=== PATIENT | female | born 1945 | race Two or more races ===

== ENCOUNTER 2018-01-11 10:02 | Inpatient (IN) | payer MEDICARE, MEDICAID ==
[~2018-01-11] VITALS: Ht 154.9 cm; Wt 54.0 kg
[~2018-01-11 10:02] MED LIST: LISI-604 PO; LOVA20TA2 PO
[2018-01-11] MEDS ORDERED: SODIUM CHLORIDE 0.9% 1,000 ML IV ONE (10:43)
[2018-01-11] MEDS ORDERED: PANTOPRAZOLE 80 MG in SODIUM CHLORIDE 0.9% 100 ML IV SCH (10:45)
[2018-01-11] MEDS ORDERED: PANTOPRAZOLE SODIUM 40 MG/VIAL IV ONE ×2 (10:45→11:28)
[2018-01-11 11:35] LABS: BASOPHILS % 0.6 % (0.0-2.0); EOSINOPHILS % 0.6 % (0.0-5.0); HEMATOCRIT. 24.2 % (36.0-48.0); HEMOGLOBIN. 8.2 g/dL (12.0-16.0); LYMPHOCYTES % 7.7 % (20.0-50.0); MEAN CORPUSCULAR HEMOGLOBIN 28.6 pg (28.0-32.0); MEAN CORPUSCULAR VOLUME 84.4 fL (81.0-99.0); MEAN PLATELET VOLUME 7.3 fl (7.4-10.4); MONOCYTES % 5.2 % (2.0-8.0); NEUTROPHILS % 85.9 % (40.0-76.0); PLATELET 570 x1000/uL (130-400); RED BLOOD CELL COUNT 2.86 mill/uL (4.2-5.4); RED CELL DISTRIBUTION WIDTH 14.2 % (11.6-14.6)
[2018-01-11 11:39] LABS: CLARITY URINE CLEAR (CLEAR); COLOR URINE YELLOW (YELLOW); KETONES URINE NEGATIVE (NEGATIVE); LEUKOCYTE ESTERASE URINE TRACE (NEGATIVE); NITRITE URINE NEGATIVE (NEGATIVE); OCCULT BLOOD URINE NEGATIVE (NEGATIVE); PROTEIN URINE NEGATIVE (NEGATIVE); SPECIFIC GRAVITY URINE 1.012 (1.005-1.030); UROBILINOGEN URINE 0.2 E.U./dL (0.2-1.0)
[2018-01-11 11:42] LABS: CHLORIDE 103 mEq/L (98-107); INR 1.1; PROTHROMBIN TIME 10.6 sec (9.1-11.1)
[2018-01-11] MEDS ORDERED: PANTOPRAZOLE 80 MG in SODIUM CHLORIDE 0.9% 80 ML IV SCH (11:45)
[2018-01-11] MEDS ORDERED: CEFTRIAXONE 2 G PREMIX 50 ML IV ONE (13:15)
[2018-01-11] MEDS ORDERED: IOHEXOL-300 100 ML BOTTLE ONE (13:19)
[2018-01-11] MEDS ORDERED: AMOX-424 MT (18:25)
[2018-01-11] MEDS ORDERED: PANT40TA4 PO (18:25)
[2018-01-11] MEDS ORDERED: AMOX-405 MT (18:25)
[2018-01-11 18:40] VITALS: BP 126/57
[2018-01-11 20:00] VITALS: BP 118/57
[2018-01-11] MEDS ORDERED: CLONIDINE 0.1MG TABLET PO PRN (20:30)
[2018-01-11] MEDS ORDERED: ONDANSETRON HCL 4MG/2ML INJ IV PRN (20:30)
[2018-01-11] MEDS: ENOXAPARIN 40MG/0.4ML SYR SUBCUT SCH ×2 (21:00→22:14)
[2018-01-11 21:29] LABS: HEMATOCRIT 21.3 % (36.0-48.0); HEMOGLOBIN 7.1 g/dL (12.0-16.0)
[2018-01-11] MEDS: DEXT 5%/0.45% NACL KCL 20MEQ/L 1,000 ML IV SCH (22:12)
[2018-01-11] MEDS: ATORVASTATIN CALCIUM 40MG TABLET PO SCH (22:12)
[2018-01-12] VITALS (96 sets, daily range): BP systolic 79–196; BP diastolic 41–107
[2018-01-12] MEDS: PANTOPRAZOLE SODIUM 40 MG/VIAL IV SCH ×2 (06:38→17:18)
[2018-01-12] MEDS ORDERED: IOHEXOL-300 100 ML BOTTLE ONE (08:43)
[2018-01-12] MEDS: DEXT 5%/0.45% NACL KCL 20MEQ/L 1,000 ML IV SCH ×3 (08:53→21:56)
[2018-01-12 09:08] LABS: BG BASE EXCESS -5.1 mmol/L (-2.0-2.0); BG CARBOXYHEMOGLOBIN 0.3 % (0.5-1.5); BG FRACTION INSPIRED OXYGEN 100; BG HCO3 ACT 23.4 mmol/L (22.0-26.0); BG METHEMOGLOBIN 0.2 % (0.0-1.5); BG OXYHEMOGLOBIN 98.5 % (94.0-97.0); BG PCO2 61.8 mmHg (35.0-45.0); BG PH 7.196 (7.350-7.450); BG PO2 272.4 mmHg (75.0-100.0); BG SAMPLE SITE PA LINE; BG TOTAL HEMOGLOBIN 10.4 g/dL (12.0-18.0); BG VENT MODE MASK - NRB
[2018-01-12 09:10] LABS: BASOPHILS % 0.6 % (0.0-2.0); EOSINOPHILS % 2.2 % (0.0-5.0); HEMOGLOBIN. 9.9 g/dL (12.0-16.0); LYMPHOCYTES % 18.1 % (20.0-50.0); MEAN CORPUSCULAR HEMOGLOBIN 29.7 pg (28.0-32.0); MEAN CORPUSCULAR VOLUME 87.2 fL (81.0-99.0); MEAN PLATELET VOLUME 6.7 fl (7.4-10.4); MONOCYTES % 6.7 % (2.0-8.0); NEUTROPHILS % 72.4 % (40.0-76.0); PLATELET 422 x1000/uL (130-400); RED BLOOD CELL COUNT 3.33 mill/uL (4.2-5.4); RED CELL DISTRIBUTION WIDTH 14.7 % (11.6-14.6)
[2018-01-12] MEDS ORDERED: MIDAZOLAM HCL 2 MG/2 ML VIAL IV PRN (10:00)
[2018-01-12 10:12] LABS: CHLORIDE 105 mEq/L (98-107)
[2018-01-12 11:06] LABS: BG BASE EXCESS -3.6 mmol/L (-2.0-2.0); BG CARBOXYHEMOGLOBIN 0.3 % (0.5-1.5); BG DEOXYHEMOGLOBIN 0.5 % (0.0-5.0); BG FRACTION INSPIRED OXYGEN 100; BG METHEMOGLOBIN 0.3 % (0.0-1.5); BG OXYGEN SATURATION 99.5 % (92.0-98.5); BG OXYHEMOGLOBIN 98.9 % (94.0-97.0); BG PCO2 41.9 mmHg (35.0-45.0); BG PH 7.338 (7.350-7.450); BG PO2 573.5 mmHg (75.0-100.0); BG SAMPLE SITE RIGHT RADIAL; BG TIDAL VOLUME(mL) 450 mL; BG TOTAL HEMOGLOBIN 10.6 g/dL (12.0-18.0); BG VENT MODE VENT - A/C; BG VENT RATE 14 set
[2018-01-12] MEDS: PIPERACILLIN/TAZ 2.25G PREMIX 50 ML IV SCH ×2 (11:23→17:19)
[2018-01-12] MEDS: PROPOFOL 10MG/ML 100ML 100 ML IV PRN (11:28)
[2018-01-12] MEDS ORDERED: PIPERACILLIN/TAZ 3.375G PREMIX 50 ML IV SCH (12:00)
[2018-01-12 12:31] LABS: HEMATOCRIT 26.6 % (36.0-48.0)
[2018-01-12] MEDS ORDERED: ETOMIDATE 2MG/ML 10ML VIAL IV ONE (13:47)
[2018-01-12] MEDS ORDERED: VECURONIUM BROMIDE 10 MG/VIAL IV ONE (13:47)
[2018-01-12] MEDS ORDERED: SUCCINYLCHOLINE CHLORIDE 200MG/10ML VIAL IV ONE (13:47)
[2018-01-12 13:56] LABS: BG BASE EXCESS -3.6 mmol/L (-2.0-2.0); BG CARBOXYHEMOGLOBIN 0.3 % (0.5-1.5); BG DEOXYHEMOGLOBIN 3.3 % (0.0-5.0); BG FRACTION INSPIRED OXYGEN 40; BG HCO3 ACT 20.7 mmol/L (22.0-26.0); BG METHEMOGLOBIN 0.3 % (0.0-1.5); BG OXYGEN SATURATION 96.7 % (92.0-98.5); BG OXYHEMOGLOBIN 96.1 % (94.0-97.0); BG PCO2 34.3 mmHg (35.0-45.0); BG PH 7.398 (7.350-7.450); BG PO2 87.9 mmHg (75.0-100.0); BG SAMPLE SITE RIGHT BRACHIAL; BG TIDAL VOLUME(mL) 450 mL; BG TOTAL HEMOGLOBIN 9.7 g/dL (12.0-18.0); BG VENT MODE VENT - A/C; BG VENT RATE 16 set
[2018-01-12] MEDS ORDERED: LIDOCAINE HCL/PF 1% 2ML VIAL ONE (14:00)
[2018-01-12 17:13] LABS: HEMATOCRIT 25.8 % (36.0-48.0); HEMOGLOBIN 8.8 g/dL (12.0-16.0)
[2018-01-12] MEDS: ATORVASTATIN CALCIUM 40MG TABLET PO SCH (21:14)
[2018-01-13] VITALS (76 sets, daily range): BP systolic 98–157; BP diastolic 48–107
[2018-01-13] MEDS: PIPERACILLIN/TAZ 2.25G PREMIX 50 ML IV SCH ×4 (00:05→17:43)
[2018-01-13 00:54] LABS: HEMATOCRIT 28.4 % (36.0-48.0)
[2018-01-13] MEDS: DEXT 5%/0.45% NACL KCL 20MEQ/L 1,000 ML IV SCH ×2 (04:55→13:56)
[2018-01-13 05:31] LABS: BASOPHILS % 0.7 % (0.0-2.0); EOSINOPHILS % 1.4 % (0.0-5.0); HEMATOCRIT. 28.6 % (36.0-48.0); LYMPHOCYTES % 7.8 % (20.0-50.0); MEAN CORPUSCULAR HEMOGLOBIN 29.5 pg (28.0-32.0); MEAN CORPUSCULAR VOLUME 84.7 fL (81.0-99.0); MEAN PLATELET VOLUME 7.2 fl (7.4-10.4); MONOCYTES % 5.9 % (2.0-8.0); NEUTROPHILS % 84.2 % (40.0-76.0); PLATELET 337 x1000/uL (130-400); RED BLOOD CELL COUNT 3.37 mill/uL (4.2-5.4); RED CELL DISTRIBUTION WIDTH 14.5 % (11.6-14.6)
[2018-01-13] MEDS: PANTOPRAZOLE SODIUM 40 MG/VIAL IV SCH ×2 (05:31→17:43)
[2018-01-13 05:42] LABS: CHLORIDE 107 mEq/L (98-107)
[2018-01-13 08:37] LABS: BG BASE EXCESS -0.7 mmol/L (-2.0-2.0); BG CARBOXYHEMOGLOBIN 0.3 % (0.5-1.5); BG DEOXYHEMOGLOBIN 2.8 % (0.0-5.0); BG FRACTION INSPIRED OXYGEN 40; BG METHEMOGLOBIN 0.2 % (0.0-1.5); BG OXYGEN SATURATION 97.2 % (92.0-98.5); BG OXYHEMOGLOBIN 96.7 % (94.0-97.0); BG PH 7.448 (7.350-7.450); BG SAMPLE SITE RIGHT RADIAL; BG TIDAL VOLUME(mL) 450 mL; BG TOTAL HEMOGLOBIN 9.7 g/dL (12.0-18.0); BG VENT MODE VENT - A/C; BG VENT RATE 16 set
[2018-01-13] MEDS: PROPOFOL 10MG/ML 100ML 100 ML IV PRN (10:27)
[2018-01-13] MEDS ORDERED: PROPOFOL 10MG/ML 100ML 100 ML IV PRN (11:45)
[2018-01-13] MEDS: METHYLPREDNISOLONE SOD SUCC 40 MG/ML VIAL IV SCH ×2 (12:04→20:53)
[2018-01-13] MEDS: IPRATROPIUM/ALBUTEROL 0.5-3(2.5)MG/3ML NEB HHN PRN ×2 (12:27→16:02)
[2018-01-13] MEDS: ATORVASTATIN CALCIUM 40MG TABLET PO SCH (20:53)
[2018-01-14] VITALS (94 sets, daily range): BP systolic 99–148; BP diastolic 42–104
[2018-01-14] MEDS: PIPERACILLIN/TAZ 2.25G PREMIX 50 ML IV SCH ×4 (01:08→18:51)
[2018-01-14] MEDS: DEXT 5%/0.45% NACL KCL 20MEQ/L 1,000 ML IV SCH ×2 (01:48→15:13)
[2018-01-14] MEDS: METHYLPREDNISOLONE SOD SUCC 40 MG/ML VIAL IV SCH ×3 (05:01→22:12)
[2018-01-14] MEDS: PANTOPRAZOLE SODIUM 40 MG/VIAL IV SCH ×2 (05:01→18:51)
[2018-01-14 05:43] LABS: HEMATOCRIT 29.4 % (36.0-48.0); MEAN CORPUSCULAR HEMOGLOBIN 29.2 pg (28.0-32.0); MEAN CORPUSCULAR VOLUME 85.7 fL (81.0-99.0); PLATELET 332 x1000/uL (130-400); RED BLOOD CELL COUNT 3.44 mill/uL (4.2-5.4); RED CELL DISTRIBUTION WIDTH 14.5 % (11.6-14.6)
[2018-01-14 05:55] LABS: CHLORIDE 109 mEq/L (98-107)
[2018-01-14 08:24] LABS: BG BASE EXCESS 0.9 mmol/L (-2.0-2.0); BG CARBOXYHEMOGLOBIN 0.3 % (0.5-1.5); BG DEOXYHEMOGLOBIN 1.6 % (0.0-5.0); BG FRACTION INSPIRED OXYGEN 40; BG HCO3 ACT 24.7 mmol/L (22.0-26.0); BG METHEMOGLOBIN 0.4 % (0.0-1.5); BG OXYGEN SATURATION 98.4 % (92.0-98.5); BG OXYHEMOGLOBIN 97.7 % (94.0-97.0); BG PCO2 36.4 mmHg (35.0-45.0); BG PH 7.449 (7.350-7.450); BG PO2 134.4 mmHg (75.0-100.0); BG SAMPLE SITE RIGHT BRACHIAL; BG TIDAL VOLUME(mL) 450 mL; BG TOTAL HEMOGLOBIN 10.9 g/dL (12.0-18.0); BG VENT MODE VENT - A/C; BG VENT RATE 16 set
[2018-01-14] MEDS ORDERED: SODIUM CHLORIDE 0.9% 10ML VIAL ONE (13:40)
[2018-01-14] MEDS: PROPOFOL 10MG/ML 100ML 100 ML IV PRN (15:14)
[2018-01-14] MEDS ORDERED: SIMETHICONE 40 MG/0.6 ML 30ML ONE (16:22)
[2018-01-14] MEDS ORDERED: FENTANYL CITRATE/PF 50MCG/ML 2ML VIAL ONE (16:22)
[2018-01-14] MEDS ORDERED: MIDAZOLAM HCL 5 MG/5 ML VIAL ONE (16:22)
[2018-01-14] MEDS ORDERED: MIDAZOLAM HCL 5 MG/5 ML VIAL IV PRN (16:43)
[2018-01-14] MEDS ORDERED: DEXTROSE 50% WATER 50ML SYRINGE IV PRN (19:00)
[2018-01-14] MEDS ORDERED: DOCUSATE SODIUM SUGAR FREE 100MG/10ML UDC PO SCH (21:00)
[2018-01-14] MEDS ORDERED: DOCUSATE SODIUM 100MG CAPSULE PO SCH (21:00)
[2018-01-14] MEDS: INSULIN LISPRO 100 UNITS/ML SUBCUT SCH (22:00)
[2018-01-14] MEDS: BLOOD SUGAR DIAGNOSTIC STRIP TEST SCH (22:00)
[2018-01-14] MEDS: ATORVASTATIN CALCIUM 40MG TABLET PO SCH (22:13)
[2018-01-15] VITALS (68 sets, daily range): BP systolic 99–181; BP diastolic 44–104
[2018-01-15] MEDS: PIPERACILLIN/TAZ 2.25G PREMIX 50 ML IV SCH ×4 (00:07→18:00)
[2018-01-15] MEDS ORDERED: DOCUSATE SODIUM SUGAR FREE 100MG/10ML UDC PO SCH (00:08)
[2018-01-15] MEDS: PROPOFOL 10MG/ML 100ML 100 ML IV PRN (02:47)
[2018-01-15] MEDS: DEXT 5%/0.45% NACL KCL 20MEQ/L 1,000 ML IV SCH (02:48)
[2018-01-15] MEDS: METHYLPREDNISOLONE SOD SUCC 40 MG/ML VIAL IV SCH ×3 (04:51→22:12)
[2018-01-15 06:10] LABS: INR 1.1; PROTHROMBIN TIME 10.7 sec (9.1-11.1)
[2018-01-15 06:11] LABS: HEMOGLOBIN. 9.4 g/dL (12.0-16.0); MEAN CORPUSCULAR HEMOGLOBIN 29.6 pg (28.0-32.0); MEAN CORPUSCULAR VOLUME 84.9 fL (81.0-99.0); MEAN PLATELET VOLUME 7.6 fl (7.4-10.4); PLATELET 290 x1000/uL (130-400); RED BLOOD CELL COUNT 3.18 mill/uL (4.2-5.4)
[2018-01-15] MEDS: PANTOPRAZOLE SODIUM 40 MG/VIAL IV SCH (06:20)
[2018-01-15] MEDS: BLOOD SUGAR DIAGNOSTIC STRIP TEST SCH ×4 (06:20→21:00)
[2018-01-15] MEDS: INSULIN LISPRO 100 UNITS/ML SUBCUT SCH ×3 (06:27→22:13)
[2018-01-15 06:29] LABS: CHLORIDE 111 mEq/L (98-107)
[2018-01-15 08:30] LABS: BG BASE EXCESS -0.8 mmol/L (-2.0-2.0); BG CARBOXYHEMOGLOBIN 0.3 % (0.5-1.5); BG DEOXYHEMOGLOBIN 3.6 % (0.0-5.0); BG FRACTION INSPIRED OXYGEN 40; BG HCO3 ACT 22.6 mmol/L (22.0-26.0); BG METHEMOGLOBIN 1.3 % (0.0-1.5); BG OXYGEN SATURATION 96.3 % (92.0-98.5); BG OXYHEMOGLOBIN 94.8 % (94.0-97.0); BG PCO2 32.8 mmHg (35.0-45.0); BG PH 7.456 (7.350-7.450); BG PO2 87.1 mmHg (75.0-100.0); BG SAMPLE SITE RIGHT BRACHIAL; BG TIDAL VOLUME(mL) 450 mL; BG TOTAL HEMOGLOBIN 9.9 g/dL (12.0-18.0); BG VENT MODE VENT - A/C; BG VENT RATE 16 set
[2018-01-15] MEDS ORDERED: BACITRACIN ZINC 15GM TUBE TOP ONE (11:32)
[2018-01-15] MEDS ORDERED: BUPIVACAINE HCL/EPINEPHRINE/PF 0.5%/0.0005 10ML ONE (11:32)
[2018-01-15] MEDS ORDERED: NORMAL SALINE 0.9% 10 ML SYR ONE ×2 (11:32→11:33)
[2018-01-15] MEDS ORDERED: BACITRACIN 50,000 UNITS/VIAL ONE (11:33)
[2018-01-15] MEDS ORDERED: ROCURONIUM BROMIDE 10MG/ML VIAL 5ML IV ONE ×3 (12:25→17:38)
[2018-01-15] MEDS ORDERED: FENTANYL CITRATE/PF 50MCG/ML 5ML VIAL ONE ×2 (12:26→17:37)
[2018-01-15] MEDS ORDERED: MIDAZOLAM HCL 2 MG/2 ML VIAL ONE (12:26)
[2018-01-15] MEDS ORDERED: SKIN ADHESIVE 0.7 GM EA TOP ONE (13:13)
[2018-01-15 13:50] LABS: PLATELET ESTIMATE NORMAL
[2018-01-15] MEDS ORDERED: PROPOFOL 10MG/ML 100ML 100 ML IV PRN (14:45)
[2018-01-15] MEDS ORDERED: SODIUM CHLORIDE 0.9% 500 ML IV PRN (19:09)
[2018-01-15] MEDS ORDERED: OXYCODONE HCL/ACETAMINOPHEN 5/325MG TABLET PO PRN ×2 (19:15)
[2018-01-15] MEDS ORDERED: ONDANSETRON HCL 4MG/2ML INJ IV PRN (19:15)
[2018-01-15 20:11] LABS: BG BASE EXCESS -1.4 mmol/L (-2.0-2.0); BG CARBOXYHEMOGLOBIN 0.3 % (0.5-1.5); BG FRACTION INSPIRED OXYGEN 70; BG HCO3 ACT 22.8 mmol/L (22.0-26.0); BG METHEMOGLOBIN 0.4 % (0.0-1.5); BG OXYHEMOGLOBIN 96.3 % (94.0-97.0); BG PCO2 36.3 mmHg (35.0-45.0); BG PH 7.416 (7.350-7.450); BG PO2 95.5 mmHg (75.0-100.0); BG SAMPLE SITE A-LINE; BG TIDAL VOLUME(mL) 450 mL; BG TOTAL HEMOGLOBIN 9.8 g/dL (12.0-18.0); BG VENT MODE VENT - A/C; BG VENT RATE 16 set
[2018-01-15 20:21] LABS: HEMATOCRIT 27.3 % (36.0-48.0); HEMOGLOBIN 9.1 g/dL (12.0-16.0); MEAN CORPUSCULAR HEMOGLOBIN 28.9 pg (28.0-32.0); MEAN CORPUSCULAR VOLUME 86.5 fL (81.0-99.0); PLATELET 353 x1000/uL (130-400); RED BLOOD CELL COUNT 3.16 mill/uL (4.2-5.4); RED CELL DISTRIBUTION WIDTH 15.3 % (11.6-14.6)
[2018-01-15 20:40] LABS: CHLORIDE 112 mEq/L (98-107)
[2018-01-15] MEDS: DEXT 5%/0.45% NACL 1000ML 1,000 ML IV SCH (20:49)
[2018-01-15] MEDS: MORPHINE SULFATE 4 MG/ML CPJ (NOT FOR IM USE) IV PRN (21:06)
[2018-01-15] MEDS: ATORVASTATIN CALCIUM 40MG TABLET PO SCH (21:06)
[2018-01-15] MEDS: MAGNESIUM/ALUMINUM HYDROXIDE/SIMETHICONE 30ML UDC NG SCH (21:06)
[2018-01-15] MEDS: MAGNESIUM HYDROXIDE 400MG/5ML 30ML UDC PO SCH (21:06)
[2018-01-15] MEDS: FENTANYL CITRATE/PF 500 MCG in SODIUM CHLORIDE 0.9% 40 ML IV PRN (22:33)
[2018-01-16] VITALS (63 sets, daily range): BP systolic 101–233; BP diastolic 43–86
[2018-01-16] MEDS: PIPERACILLIN/TAZ 2.25G PREMIX 50 ML IV SCH ×5 (00:33→23:38)
[2018-01-16] MEDS: MAGNESIUM HYDROXIDE 400MG/5ML 30ML UDC PO SCH ×6 (00:33→20:09)
[2018-01-16] MEDS: MAGNESIUM/ALUMINUM HYDROXIDE/SIMETHICONE 30ML UDC NG SCH ×7 (00:33→23:19)
[2018-01-16 01:25] LABS: HEMATOCRIT. 25.6 % (36.0-48.0); HEMOGLOBIN. 8.7 g/dL (12.0-16.0); MEAN CORPUSCULAR VOLUME 85.4 fL (81.0-99.0); MEAN PLATELET VOLUME 7.3 fl (7.4-10.4); PLATELET 275 x1000/uL (130-400); RED BLOOD CELL COUNT 2.99 mill/uL (4.2-5.4)
[2018-01-16 01:30] LABS: CHLORIDE 111 mEq/L (98-107)
[2018-01-16 05:13] LABS: PLATELET ESTIMATE NORMAL
[2018-01-16] MEDS: FENTANYL CITRATE/PF 500 MCG in SODIUM CHLORIDE 0.9% 40 ML IV PRN ×2 (05:24→16:04)
[2018-01-16] MEDS: BLOOD SUGAR DIAGNOSTIC STRIP TEST SCH ×4 (06:17→20:11)
[2018-01-16] MEDS: INSULIN LISPRO 100 UNITS/ML SUBCUT SCH ×4 (06:17→20:11)
[2018-01-16 06:42] LABS: HEMATOCRIT. 24.6 % (36.0-48.0); HEMOGLOBIN. 8.4 g/dL (12.0-16.0); MEAN CORPUSCULAR HEMOGLOBIN 29.2 pg (28.0-32.0); MEAN CORPUSCULAR VOLUME 85.5 fL (81.0-99.0); MEAN PLATELET VOLUME 7.7 fl (7.4-10.4); PLATELET 273 x1000/uL (130-400); RED BLOOD CELL COUNT 2.88 mill/uL (4.2-5.4); RED CELL DISTRIBUTION WIDTH 14.7 % (11.6-14.6)
[2018-01-16 07:19] LABS: CHLORIDE 109 mEq/L (98-107)
[2018-01-16 07:24] LABS: PLATELET ESTIMATE NORMAL
[2018-01-16 08:16] LABS: BG CARBOXYHEMOGLOBIN 0.3 % (0.5-1.5); BG FRACTION INSPIRED OXYGEN 60; BG METHEMOGLOBIN 0.2 % (0.0-1.5); BG OXYHEMOGLOBIN 98.5 % (94.0-97.0); BG PCO2 31.8 mmHg (35.0-45.0); BG PH 7.478 (7.350-7.450); BG PO2 172.2 mmHg (75.0-100.0); BG SAMPLE SITE A-LINE; BG TIDAL VOLUME(mL) 450 mL; BG TOTAL HEMOGLOBIN 10.6 g/dL (12.0-18.0); BG VENT MODE VENT - A/C; BG VENT RATE 16 set
[2018-01-16] MEDS: FAMOTIDINE 20MG/2ML VIAL IV SCH (08:18)
[2018-01-16] MEDS: DOCUSATE SODIUM 100MG CAPSULE PO SCH ×2 (08:18→16:46)
[2018-01-16 10:50] LABS: BG BASE EXCESS -1.5 mmol/L (-2.0-2.0); BG CARBOXYHEMOGLOBIN 0.3 % (0.5-1.5); BG DEOXYHEMOGLOBIN 2.9 % (0.0-5.0); BG FRACTION INSPIRED OXYGEN 50; BG HCO3 ACT 22.4 mmol/L (22.0-26.0); BG METHEMOGLOBIN 0.2 % (0.0-1.5); BG OXYGEN SATURATION 97.1 % (92.0-98.5); BG OXYHEMOGLOBIN 96.6 % (94.0-97.0); BG PCO2 34.2 mmHg (35.0-45.0); BG PH 7.434 (7.350-7.450); BG PO2 103.7 mmHg (75.0-100.0); BG PRESSURE SUPPORT 12; BG SAMPLE SITE A-LINE; BG TOTAL HEMOGLOBIN 9.6 g/dL (12.0-18.0); BG VENT MODE VENT - CPAP
[2018-01-16] MEDS: METHYLPREDNISOLONE SOD SUCC 40 MG/ML VIAL IV SCH ×2 (11:05→23:38)
[2018-01-16 12:24] LABS: BASOPHILS % 0.1 % (0.0-2.0); EOSINOPHILS % 0.1 % (0.0-5.0); HEMATOCRIT. 24.9 % (36.0-48.0); HEMOGLOBIN. 8.5 g/dL (12.0-16.0); LYMPHOCYTES % 8.6 % (20.0-50.0); MEAN CORPUSCULAR HEMOGLOBIN 29.2 pg (28.0-32.0); MEAN PLATELET VOLUME 7.5 fl (7.4-10.4); NEUTROPHILS % 83.2 % (40.0-76.0); PLATELET 233 x1000/uL (130-400); RED BLOOD CELL COUNT 2.93 mill/uL (4.2-5.4); RED CELL DISTRIBUTION WIDTH 14.7 % (11.6-14.6)
[2018-01-16 13:29] LABS: CHLORIDE 111 mEq/L (98-107)
[2018-01-16] MEDS: KETOROLAC 15MG/ML VIAL IV SCH ×2 (14:25→20:10)
[2018-01-16] MEDS: DEXT 5%/0.45% NACL 1000ML 1,000 ML IV SCH (14:39)
[2018-01-16 14:53] LABS: BG BASE EXCESS -0.6 mmol/L (-2.0-2.0); BG CARBOXYHEMOGLOBIN 0.3 % (0.5-1.5); BG CPAP (cmH2O) 0 cm(H2O); BG DEOXYHEMOGLOBIN 3.4 % (0.0-5.0); BG HCO3 ACT 23.1 mmol/L (22.0-26.0); BG METHEMOGLOBIN 0.3 % (0.0-1.5); BG OXYGEN SATURATION 96.6 % (92.0-98.5); BG PCO2 34.1 mmHg (35.0-45.0); BG PH 7.448 (7.350-7.450); BG PO2 92.3 mmHg (75.0-100.0); BG SAMPLE SITE A-LINE; BG TOTAL HEMOGLOBIN 9.1 g/dL (12.0-18.0); BG VENT MODE VENT - CPAP
[2018-01-16] MEDS ORDERED: KCL 20MEQ/100ML PREMIX 100 ML IV NR (15:00)
[2018-01-16] MEDS: ATORVASTATIN CALCIUM 40MG TABLET PO SCH (20:10)
[2018-01-17] VITALS (45 sets, daily range): BP systolic 108–207; BP diastolic 34–97
[2018-01-17] MEDS: KETOROLAC 15MG/ML VIAL IV SCH ×4 (02:35→21:14)
[2018-01-17] MEDS: MAGNESIUM/ALUMINUM HYDROXIDE/SIMETHICONE 30ML UDC NG SCH ×6 (03:38→23:26)
[2018-01-17 05:15] LABS: HEMATOCRIT 24.7 % (36.0-48.0); HEMOGLOBIN 8.4 g/dL (12.0-16.0); MEAN CORPUSCULAR HEMOGLOBIN 29.3 pg (28.0-32.0); MEAN CORPUSCULAR VOLUME 85.9 fL (81.0-99.0); PLATELET 215 x1000/uL (130-400); RED BLOOD CELL COUNT 2.88 mill/uL (4.2-5.4); RED CELL DISTRIBUTION WIDTH 14.8 % (11.6-14.6)
[2018-01-17 05:17] LABS: CHLORIDE 106 mEq/L (98-107)
[2018-01-17] MEDS: BLOOD SUGAR DIAGNOSTIC STRIP TEST SCH ×4 (06:28→21:15)
[2018-01-17] MEDS: DEXT 5%/0.45% NACL 1000ML 1,000 ML IV SCH (06:42)
[2018-01-17] MEDS: PIPERACILLIN/TAZ 2.25G PREMIX 50 ML IV SCH ×4 (06:42→23:26)
[2018-01-17] MEDS: INSULIN LISPRO 100 UNITS/ML SUBCUT SCH ×4 (06:43→21:17)
[2018-01-17] MEDS: DOCUSATE SODIUM 100MG CAPSULE PO SCH ×2 (08:57→17:00)
[2018-01-17] MEDS: FAMOTIDINE 20MG/2ML VIAL IV SCH (09:20)
[2018-01-17] MEDS ORDERED: DEXT 5%/0.45% NACL 1000ML 1,000 ML IV SCH (11:00)
[2018-01-17] MEDS: FENTANYL CITRATE/PF 500 MCG in SODIUM CHLORIDE 0.9% 40 ML IV PRN ×2 (15:27→23:26)
[2018-01-17] MEDS: IPRATROPIUM/ALBUTEROL 0.5-3(2.5)MG/3ML NEB HHN SCH (21:06)
[2018-01-17] MEDS: ATORVASTATIN CALCIUM 40MG TABLET PO SCH (21:14)
[2018-01-17] MEDS: HYDROCODONE/ACETAMINOPHEN 5/325MG TABLET PO PRN (21:15)
[2018-01-18] VITALS (45 sets, daily range): BP systolic 104–168; BP diastolic 49–92
[2018-01-18] MEDS: HYDROCODONE/ACETAMINOPHEN 5/325MG TABLET PO PRN ×2 (01:29→05:56)
[2018-01-18] MEDS: KETOROLAC 15MG/ML VIAL IV SCH ×4 (01:30→20:14)
[2018-01-18] MEDS: IPRATROPIUM/ALBUTEROL 0.5-3(2.5)MG/3ML NEB HHN SCH ×4 (01:34→20:09)
[2018-01-18] MEDS: MAGNESIUM/ALUMINUM HYDROXIDE/SIMETHICONE 30ML UDC NG SCH ×5 (04:00→20:14)
[2018-01-18 05:15] LABS: BG BASE EXCESS 4.4 mmol/L (-2.0-2.0); BG CARBOXYHEMOGLOBIN 0.2 % (0.5-1.5); BG DEOXYHEMOGLOBIN 5.5 % (0.0-5.0); BG FRACTION INSPIRED OXYGEN 60; BG HCO3 ACT 28.5 mmol/L (22.0-26.0); BG METHEMOGLOBIN 0.2 % (0.0-1.5); BG OXYGEN SATURATION 94.5 % (92.0-98.5); BG OXYHEMOGLOBIN 94.1 % (94.0-97.0); BG PCO2 40.4 mmHg (35.0-45.0); BG PH 7.466 (7.350-7.450); BG PO2 73.9 mmHg (75.0-100.0); BG SAMPLE SITE RIGHT RADIAL; BG TOTAL HEMOGLOBIN 8.7 g/dL (12.0-18.0); BG VENT MODE MASK - AEROSOL
[2018-01-18 05:32] LABS: HEMATOCRIT 22.3 % (36.0-48.0); HEMOGLOBIN 7.8 g/dL (12.0-16.0); MEAN CORPUSCULAR HEMOGLOBIN 29.3 pg (28.0-32.0); MEAN CORPUSCULAR VOLUME 83.9 fL (81.0-99.0); PLATELET 194 x1000/uL (130-400); RED BLOOD CELL COUNT 2.65 mill/uL (4.2-5.4); RED CELL DISTRIBUTION WIDTH 14.6 % (11.6-14.6)
[2018-01-18 05:35] LABS: CHLORIDE 102 mEq/L (98-107)
[2018-01-18] MEDS: PIPERACILLIN/TAZ 2.25G PREMIX 50 ML IV SCH ×4 (05:55→23:04)
[2018-01-18] MEDS: BLOOD SUGAR DIAGNOSTIC STRIP TEST SCH ×4 (05:56→20:32)
[2018-01-18] MEDS: INSULIN LISPRO 100 UNITS/ML SUBCUT SCH ×4 (05:57→20:32)
[2018-01-18] MEDS: FENTANYL CITRATE/PF 500 MCG in SODIUM CHLORIDE 0.9% 40 ML IV PRN ×2 (06:07→19:50)
[2018-01-18] MEDS: METHYLPREDNISOLONE SOD SUCC 40 MG/ML VIAL IV SCH (09:41)
[2018-01-18] MEDS: FAMOTIDINE 20MG/2ML VIAL IV SCH (09:41)
[2018-01-18] MEDS: DOCUSATE SODIUM 100MG CAPSULE PO SCH ×2 (09:42→17:00)
[2018-01-18] MEDS ORDERED: POTASSIUM CHLORIDE 20MEQ TABLET SR PO NR (11:15)
[2018-01-18 11:54] LABS: BG BASE EXCESS 3.8 mmol/L (-2.0-2.0); BG CARBOXYHEMOGLOBIN 0.3 % (0.5-1.5); BG DEOXYHEMOGLOBIN 4.1 % (0.0-5.0); BG HCO3 ACT 27.7 mmol/L (22.0-26.0); BG METHEMOGLOBIN 0.6 % (0.0-1.5); BG OXYGEN SATURATION 95.9 % (92.0-98.5); BG PCO2 38.9 mmHg (35.0-45.0); BG PO2 79.1 mmHg (75.0-100.0); BG SAMPLE SITE RIGHT BRACHIAL; BG TOTAL HEMOGLOBIN 8.3 g/dL (12.0-18.0); BG VENT MODE NASAL CANNULA
[2018-01-18 13:00] LABS: HEMOGLOBIN 8.1 g/dL (12.0-16.0)
[2018-01-18 19:46] LABS: HEMATOCRIT 22.7 % (36.0-48.0); HEMOGLOBIN 7.5 g/dL (12.0-16.0)
[2018-01-18] MEDS: ATORVASTATIN CALCIUM 40MG TABLET PO SCH (20:14)
[2018-01-19] VITALS (45 sets, daily range): BP systolic 114–178; BP diastolic 53–84
[2018-01-19] MEDS: ACETYLCYSTEINE 100MG/ML 10% VIAL 4ML INH SCH ×3 (00:07→17:06)
[2018-01-19] MEDS: IPRATROPIUM/ALBUTEROL 0.5-3(2.5)MG/3ML NEB HHN SCH ×6 (00:07→20:52)
[2018-01-19] MEDS: KETOROLAC 15MG/ML VIAL IV SCH ×3 (02:05→08:30)
[2018-01-19] MEDS: PIPERACILLIN/TAZ 2.25G PREMIX 50 ML IV SCH (05:02)
[2018-01-19] MEDS: BLOOD SUGAR DIAGNOSTIC STRIP TEST SCH ×4 (05:33→20:53)
[2018-01-19] MEDS: INSULIN LISPRO 100 UNITS/ML SUBCUT SCH ×4 (06:12→21:04)
[2018-01-19 06:21] LABS: CHLORIDE 99 mEq/L (98-107)
[2018-01-19 06:43] LABS: HEMOGLOBIN 7.9 g/dL (12.0-16.0); MEAN CORPUSCULAR HEMOGLOBIN 28.8 pg (28.0-32.0); MEAN CORPUSCULAR VOLUME 84.2 fL (81.0-99.0); PLATELET 265 x1000/uL (130-400); RED BLOOD CELL COUNT 2.73 mill/uL (4.2-5.4); RED CELL DISTRIBUTION WIDTH 14.6 % (11.6-14.6)
[2018-01-19] MEDS: FAMOTIDINE 20MG/2ML VIAL IV SCH (09:46)
[2018-01-19] MEDS: DOCUSATE SODIUM 100MG CAPSULE PO SCH ×2 (09:46→17:18)
[2018-01-19] MEDS: METHYLPREDNISOLONE SOD SUCC 40 MG/ML VIAL IV SCH (09:46)
[2018-01-19] MEDS ORDERED: FUROSEMIDE 40MG/4ML VIAL IVP NR (11:15)
[2018-01-19] MEDS: MORPHINE SULFATE 4 MG/ML CPJ (NOT FOR IM USE) IV PRN (15:11)
[2018-01-19] MEDS: ATORVASTATIN CALCIUM 40MG TABLET PO SCH (21:01)
[2018-01-20] VITALS (12 sets, daily range): BP systolic 114–157; BP diastolic 54–79
[2018-01-20] MEDS: IPRATROPIUM/ALBUTEROL 0.5-3(2.5)MG/3ML NEB HHN SCH ×6 (00:30→21:51)
[2018-01-20 06:35] LABS: HEMATOCRIT 27.3 % (36.0-48.0); HEMOGLOBIN 9.3 g/dL (12.0-16.0); MEAN CORPUSCULAR HEMOGLOBIN 28.6 pg (28.0-32.0); MEAN CORPUSCULAR VOLUME 83.8 fL (81.0-99.0); PLATELET 229 x1000/uL (130-400); RED BLOOD CELL COUNT 3.26 mill/uL (4.2-5.4); RED CELL DISTRIBUTION WIDTH 14.5 % (11.6-14.6)
[2018-01-20] MEDS: BLOOD SUGAR DIAGNOSTIC STRIP TEST SCH ×4 (06:44→20:50)
[2018-01-20 06:48] LABS: CHLORIDE 99 mEq/L (98-107)
[2018-01-20] MEDS: INSULIN LISPRO 100 UNITS/ML SUBCUT SCH ×4 (07:20→20:57)
[2018-01-20] MEDS: FAMOTIDINE 20MG/2ML VIAL IV SCH (08:07)
[2018-01-20] MEDS: DOCUSATE SODIUM 100MG CAPSULE PO SCH ×3 (08:07→17:59)
[2018-01-20] MEDS: METHYLPREDNISOLONE SOD SUCC 40 MG/ML VIAL IV SCH (08:07)
[2018-01-20] MEDS: ACETYLCYSTEINE 100MG/ML 10% VIAL 4ML INH SCH ×2 (09:11→16:25)
[2018-01-20] MEDS ORDERED: POTASSIUM CHLORIDE 20MEQ TABLET SR PO NR (13:30)
[2018-01-20] MEDS: ATORVASTATIN CALCIUM 40MG TABLET PO SCH (20:55)
[2018-01-20] MEDS: HYDROCODONE/ACETAMINOPHEN 5/325MG TABLET PO PRN (20:56)
[2018-01-21] VITALS (12 sets, daily range): BP systolic 126–157; BP diastolic 48–82
[2018-01-21] MEDS: IPRATROPIUM/ALBUTEROL 0.5-3(2.5)MG/3ML NEB HHN SCH ×6 (01:44→21:05)
[2018-01-21] MEDS: ACETYLCYSTEINE 100MG/ML 10% VIAL 4ML INH SCH ×3 (01:44→16:57)
[2018-01-21] MEDS: INSULIN LISPRO 100 UNITS/ML SUBCUT SCH ×4 (06:20→20:57)
[2018-01-21] MEDS: BLOOD SUGAR DIAGNOSTIC STRIP TEST SCH ×4 (06:20→20:33)
[2018-01-21] MEDS: FAMOTIDINE 20MG/2ML VIAL IV SCH (08:01)
[2018-01-21] MEDS: METHYLPREDNISOLONE SOD SUCC 40 MG/ML VIAL IV SCH (08:01)
[2018-01-21] MEDS: DOCUSATE SODIUM 100MG CAPSULE PO SCH ×2 (08:01→18:00)
[2018-01-21] MEDS: HYDROCODONE/ACETAMINOPHEN 5/325MG TABLET PO PRN ×3 (08:01→20:33)
[2018-01-21 10:31] LABS: HEMATOCRIT 29.2 % (36.0-48.0); HEMOGLOBIN 9.9 g/dL (12.0-16.0); MEAN CORPUSCULAR HEMOGLOBIN 28.2 pg (28.0-32.0); PLATELET 354 x1000/uL (130-400); RED BLOOD CELL COUNT 3.52 mill/uL (4.2-5.4)
[2018-01-21 10:57] LABS: CHLORIDE 99 mEq/L (98-107)
[2018-01-21 14:16] LABS: BG BASE EXCESS 1.3 mmol/L (-2.0-2.0); BG CARBOXYHEMOGLOBIN 0.3 % (0.5-1.5); BG DEOXYHEMOGLOBIN 11.1 % (0.0-5.0); BG HCO3 ACT 24.2 mmol/L (22.0-26.0); BG METHEMOGLOBIN 0.3 % (0.0-1.5); BG OXYGEN SATURATION 88.8 % (92.0-98.5); BG OXYHEMOGLOBIN 88.3 % (94.0-97.0); BG PCO2 32.3 mmHg (35.0-45.0); BG PH 7.492 (7.350-7.450); BG PO2 50.7 mmHg (75.0-100.0); BG SAMPLE SITE RIGHT BRACHIAL; BG TOTAL HEMOGLOBIN 10.9 g/dL (12.0-18.0); BG VENT MODE ROOM AIR
[2018-01-21] MEDS ORDERED: FUROSEMIDE 40MG/4ML VIAL IVP NR (14:45)
[2018-01-21 20:07] LABS: CREATINE KINASE 69 IU/L (26-192)
[2018-01-21 20:08] LABS: CREATINE KINASE MB FRACTION < 1.0 ng/mL (0.5-3.6)
[2018-01-21] MEDS: ATORVASTATIN CALCIUM 40MG TABLET PO SCH (20:32)
[2018-01-22] VITALS (9 sets, daily range): BP systolic 112–160; BP diastolic 61–94
[2018-01-22] MEDS: IPRATROPIUM/ALBUTEROL 0.5-3(2.5)MG/3ML NEB HHN SCH ×6 (00:19→21:10)
[2018-01-22] MEDS: ACETYLCYSTEINE 100MG/ML 10% VIAL 4ML INH SCH ×3 (00:19→16:40)
[2018-01-22] MEDS: HYDROCODONE/ACETAMINOPHEN 5/325MG TABLET PO PRN ×4 (05:15→21:33)
[2018-01-22] MEDS: BLOOD SUGAR DIAGNOSTIC STRIP TEST SCH ×4 (06:34→21:06)
[2018-01-22] MEDS: INSULIN LISPRO 100 UNITS/ML SUBCUT SCH ×4 (06:34→21:38)
[2018-01-22 07:20] LABS: HEMATOCRIT 30.7 % (36.0-48.0); HEMOGLOBIN 10.4 g/dL (12.0-16.0); MEAN CORPUSCULAR HEMOGLOBIN 28.2 pg (28.0-32.0); MEAN CORPUSCULAR VOLUME 83.7 fL (81.0-99.0); PLATELET 369 x1000/uL (130-400); RED BLOOD CELL COUNT 3.67 mill/uL (4.2-5.4); RED CELL DISTRIBUTION WIDTH 15.1 % (11.6-14.6)
[2018-01-22] MEDS: FAMOTIDINE 20MG/2ML VIAL IV SCH (07:52)
[2018-01-22] MEDS: DOCUSATE SODIUM 100MG CAPSULE PO SCH ×2 (07:52→17:41)
[2018-01-22 08:01] LABS: CHLORIDE 94 mEq/L (98-107)
[2018-01-22 09:28] LABS: BG BASE EXCESS 5.8 mmol/L (-2.0-2.0); BG CARBOXYHEMOGLOBIN 0.1 % (0.5-1.5); BG DEOXYHEMOGLOBIN 6.4 % (0.0-5.0); BG FRACTION INSPIRED OXYGEN 32; BG HCO3 ACT 29.1 mmol/L (22.0-26.0); BG METHEMOGLOBIN 0.3 % (0.0-1.5); BG OXYGEN SATURATION 93.6 % (92.0-98.5); BG OXYHEMOGLOBIN 93.2 % (94.0-97.0); BG PCO2 37.4 mmHg (35.0-45.0); BG PH 7.509 (7.350-7.450); BG PO2 63.4 mmHg (75.0-100.0); BG SAMPLE SITE RIGHT BRACHIAL; BG VENT MODE NASAL CANNULA
[2018-01-22] MEDS ORDERED: POTASSIUM CHLORIDE 20MEQ TABLET SR PO NR (10:15)
[2018-01-22] MEDS ORDERED: POTASSIUM CHLORIDE 20MEQ TABLET SR PO ONE (10:45)
[2018-01-22] MEDS: ATORVASTATIN CALCIUM 40MG TABLET PO SCH (21:31)
[2018-01-23] VITALS (12 sets, daily range): BP systolic 118–148; BP diastolic 64–84
[2018-01-23] MEDS: ACETYLCYSTEINE 100MG/ML 10% VIAL 4ML INH SCH ×2 (01:12→09:14)
[2018-01-23] MEDS: IPRATROPIUM/ALBUTEROL 0.5-3(2.5)MG/3ML NEB HHN SCH ×6 (01:12→20:26)
[2018-01-23] MEDS: HYDROCODONE/ACETAMINOPHEN 5/325MG TABLET PO PRN ×5 (01:35→18:11)
[2018-01-23] MEDS: BLOOD SUGAR DIAGNOSTIC STRIP TEST SCH ×4 (06:16→21:10)
[2018-01-23 06:44] LABS: HEMATOCRIT 29.6 % (36.0-48.0); MEAN CORPUSCULAR HEMOGLOBIN 28.3 pg (28.0-32.0); MEAN CORPUSCULAR VOLUME 83.7 fL (81.0-99.0); PLATELET 432 x1000/uL (130-400); RED BLOOD CELL COUNT 3.53 mill/uL (4.2-5.4); RED CELL DISTRIBUTION WIDTH 15.7 % (11.6-14.6)
[2018-01-23 07:03] LABS: CHLORIDE 97 mEq/L (98-107)
[2018-01-23] MEDS: INSULIN LISPRO 100 UNITS/ML SUBCUT SCH ×4 (07:20→21:26)
[2018-01-23] MEDS: METOPROLOL TARTRATE 50MG TABLET PO SCH ×2 (07:23→21:21)
[2018-01-23] MEDS: DOCUSATE SODIUM 100MG CAPSULE PO SCH ×2 (08:27→18:11)
[2018-01-23] MEDS: FAMOTIDINE 20MG/2ML VIAL IV SCH (08:28)
[2018-01-23] MEDS ORDERED: PIPERACILLIN/TAZ 3.375G PREMIX 50 ML IV SCH (08:30)
[2018-01-23 09:33] LABS: BG BASE EXCESS 5.6 mmol/L (-2.0-2.0); BG CARBOXYHEMOGLOBIN 0.5 % (0.5-1.5); BG DEOXYHEMOGLOBIN 5.4 % (0.0-5.0); BG FRACTION INSPIRED OXYGEN 32; BG HCO3 ACT 29.9 mmol/L (22.0-26.0); BG METHEMOGLOBIN 0.2 % (0.0-1.5); BG OXYGEN SATURATION 94.6 % (92.0-98.5); BG OXYHEMOGLOBIN 93.9 % (94.0-97.0); BG PCO2 42.2 mmHg (35.0-45.0); BG PH 7.468 (7.350-7.450); BG PO2 70.5 mmHg (75.0-100.0); BG SAMPLE SITE RIGHT BRACHIAL; BG TOTAL HEMOGLOBIN 11.5 g/dL (12.0-18.0); BG VENT MODE NASAL CANNULA
[2018-01-23] MEDS ORDERED: LEVOFLOXACIN 500MG PREMIX 100 ML IV SCH (10:30)
[2018-01-23] MEDS: LEVOFLOXACIN 500MG PREMIX 100 ML IV SCH (12:20)
[2018-01-23] MEDS ORDERED: LIDOCAINE HCL 1% 10 MG/ML 10ML VIAL ONE (14:35)
[2018-01-23] MEDS ORDERED: VANCOMYCIN 1 G PREMIX 200 ML IV NR (16:30)
[2018-01-23 17:05] LABS: CLARITY URINE CLEAR (CLEAR); COLOR URINE YELLOW (YELLOW); KETONES URINE NEGATIVE (NEGATIVE); LEUKOCYTE ESTERASE URINE NEGATIVE (NEGATIVE); NITRITE URINE NEGATIVE (NEGATIVE); OCCULT BLOOD URINE TRACE (NEGATIVE); PH URINE 6.5 (4.5-8.0); PROTEIN URINE 2+ (NEGATIVE); SPECIFIC GRAVITY URINE 1.026 (1.005-1.030); UROBILINOGEN URINE 0.2 E.U./dL (0.2-1.0)
[2018-01-23] MEDS ORDERED: HYDROCODONE/ACETAMINOPHEN 5/325MG TABLET PO PRN (20:45)
[2018-01-23] MEDS: MEROPENEM 1,000 MG in SODIUM CHLORIDE 0.9% 100 ML IV SCH (21:03)
[2018-01-23] MEDS: ATORVASTATIN CALCIUM 40MG TABLET PO SCH (21:21)
[2018-01-24] VITALS (53 sets, daily range): BP systolic 71–167; BP diastolic 40–90
[2018-01-24] MEDS: IPRATROPIUM/ALBUTEROL 0.5-3(2.5)MG/3ML NEB HHN SCH ×6 (00:29→21:29)
[2018-01-24] MEDS: ACETYLCYSTEINE 100MG/ML 10% VIAL 4ML INH SCH (00:29)
[2018-01-24 04:32] LABS: BG BASE EXCESS 2.3 mmol/L (-2.0-2.0); BG CARBOXYHEMOGLOBIN 0.3 % (0.5-1.5); BG DEOXYHEMOGLOBIN 0.8 % (0.0-5.0); BG FRACTION INSPIRED OXYGEN 100; BG HCO3 ACT 27.1 mmol/L (22.0-26.0); BG METHEMOGLOBIN 0.4 % (0.0-1.5); BG OXYGEN SATURATION 99.2 % (92.0-98.5); BG OXYHEMOGLOBIN 98.5 % (94.0-97.0); BG PCO2 42.6 mmHg (35.0-45.0); BG PH 7.421 (7.350-7.450); BG PO2 177.3 mmHg (75.0-100.0); BG SAMPLE SITE RIGHT BRACHIAL; BG TOTAL HEMOGLOBIN 10.9 g/dL (12.0-18.0); BG VENT MODE MASK - BIPAP; BG VENT RATE 16 set
[2018-01-24] MEDS: MEROPENEM 1,000 MG in SODIUM CHLORIDE 0.9% 100 ML IV SCH ×2 (05:45→17:05)
[2018-01-24] MEDS: BLOOD SUGAR DIAGNOSTIC STRIP TEST SCH ×4 (06:41→23:53)
[2018-01-24] MEDS: INSULIN LISPRO 100 UNITS/ML SUBCUT SCH ×3 (07:20→23:53)
[2018-01-24] MEDS: FAMOTIDINE 20MG/2ML VIAL IV SCH (09:00)
[2018-01-24] MEDS: METOPROLOL TARTRATE 50MG TABLET PO SCH ×2 (09:00→20:29)
[2018-01-24] MEDS: DOCUSATE SODIUM 100MG CAPSULE PO SCH ×2 (09:00→17:00)
[2018-01-24 09:14] LABS: BG BASE EXCESS 1.4 mmol/L (-2.0-2.0); BG CARBOXYHEMOGLOBIN 0.3 % (0.5-1.5); BG DEOXYHEMOGLOBIN 2.2 % (0.0-5.0); BG FRACTION INSPIRED OXYGEN 100; BG HCO3 ACT 25.7 mmol/L (22.0-26.0); BG METHEMOGLOBIN 0.4 % (0.0-1.5); BG OXYGEN SATURATION 97.8 % (92.0-98.5); BG OXYHEMOGLOBIN 97.1 % (94.0-97.0); BG PCO2 39.4 mmHg (35.0-45.0); BG PH 7.432 (7.350-7.450); BG SAMPLE SITE LEFT RADIAL; BG VENT MODE MASK - BIPAP
[2018-01-24] MEDS ORDERED: VANCOMYCIN 1 G PREMIX 200 ML IV SCH (10:30)
[2018-01-24 10:46] LABS: HEMATOCRIT. 29.5 % (36.0-48.0); HEMOGLOBIN. 9.7 g/dL (12.0-16.0); MEAN CORPUSCULAR HEMOGLOBIN 27.8 pg (28.0-32.0); MEAN CORPUSCULAR VOLUME 84.8 fL (81.0-99.0); MEAN PLATELET VOLUME 7.7 fl (7.4-10.4); PLATELET 459 x1000/uL (130-400); RED BLOOD CELL COUNT 3.48 mill/uL (4.2-5.4); RED CELL DISTRIBUTION WIDTH 16.6 % (11.6-14.6)
[2018-01-24] MEDS: LORAZEPAM 2MG/ML CPJ IV PRN (11:18)
[2018-01-24 11:43] LABS: PLATELET ESTIMATE INCREASED
[2018-01-24] MEDS ORDERED: VECURONIUM BROMIDE 10 MG/VIAL IV ONE (12:00)
[2018-01-24] MEDS ORDERED: ETOMIDATE 2MG/ML 10ML VIAL IV ONE (12:00)
[2018-01-24] MEDS ORDERED: ACETAMINOPHEN 650MG/20.3ML UDC NG NR (13:00)
[2018-01-24 13:14] LABS: BG CARBOXYHEMOGLOBIN 0.3 % (0.5-1.5); BG DEOXYHEMOGLOBIN 0.8 % (0.0-5.0); BG FRACTION INSPIRED OXYGEN 100; BG HCO3 ACT 28.7 mmol/L (22.0-26.0); BG METHEMOGLOBIN 0.1 % (0.0-1.5); BG OXYGEN SATURATION 99.2 % (92.0-98.5); BG OXYHEMOGLOBIN 98.8 % (94.0-97.0); BG PCO2 55.7 mmHg (35.0-45.0); BG PO2 194.7 mmHg (75.0-100.0); BG SAMPLE SITE LEFT RADIAL; BG TIDAL VOLUME(mL) 450 mL; BG TOTAL HEMOGLOBIN 10.6 g/dL (12.0-18.0); BG VENT MODE VENT - A/C; BG VENT RATE 12 set
[2018-01-24] MEDS: DILTIAZEM HCL 125 MG in DEXT 5% WATER 100 ML IV PRN (14:20)
[2018-01-24] MEDS: NOREPINEPHRINE 16 MG in DEXT 5% WATER 234 ML IV PRN (14:45)
[2018-01-24 18:38] LABS: BG BASE EXCESS 3.6 mmol/L (-2.0-2.0); BG CARBOXYHEMOGLOBIN 0.3 % (0.5-1.5); BG FRACTION INSPIRED OXYGEN 60; BG HCO3 ACT 26.9 mmol/L (22.0-26.0); BG METHEMOGLOBIN 0.2 % (0.0-1.5); BG OXYHEMOGLOBIN 96.5 % (94.0-97.0); BG PCO2 35.5 mmHg (35.0-45.0); BG PH 7.497 (7.350-7.450); BG PO2 87.7 mmHg (75.0-100.0); BG SAMPLE SITE RIGHT RADIAL; BG TIDAL VOLUME(mL) 450 mL; BG TOTAL HEMOGLOBIN 10.3 g/dL (12.0-18.0); BG VENT MODE VENT - A/C; BG VENT RATE 12 set
[2018-01-24] MEDS: ATORVASTATIN CALCIUM 40MG TABLET PO SCH (20:29)
[2018-01-25] VITALS (95 sets, daily range): BP systolic 83–136; BP diastolic 42–98
[2018-01-25] MEDS: ACETAMINOPHEN 325MG TABLET PO PRN ×3 (00:15→16:35)
[2018-01-25] MEDS: DILTIAZEM HCL 125 MG in DEXT 5% WATER 100 ML IV PRN (00:24)
[2018-01-25] MEDS: IPRATROPIUM/ALBUTEROL 0.5-3(2.5)MG/3ML NEB HHN SCH ×6 (01:05→20:26)
[2018-01-25] MEDS: MEROPENEM 1,000 MG in SODIUM CHLORIDE 0.9% 100 ML IV SCH ×2 (05:17→18:24)
[2018-01-25] MEDS: BLOOD SUGAR DIAGNOSTIC STRIP TEST SCH ×3 (05:53→18:24)
[2018-01-25] MEDS: INSULIN LISPRO 100 UNITS/ML SUBCUT SCH ×3 (05:58→18:23)
[2018-01-25] MEDS ORDERED: VANCOMYCIN 1 G PREMIX 200 ML IV SCH (06:00)
[2018-01-25 06:13] LABS: CHLORIDE 98 mEq/L (98-107)
[2018-01-25 06:22] LABS: VANCOMYCIN TROUGH 10.3 ug/mL (5.0-10.0)
[2018-01-25 06:32] LABS: HEMATOCRIT. 27.2 % (36.0-48.0); HEMOGLOBIN. 9.2 g/dL (12.0-16.0); MEAN CORPUSCULAR HEMOGLOBIN 28.2 pg (28.0-32.0); MEAN CORPUSCULAR VOLUME 83.6 fL (81.0-99.0); MEAN PLATELET VOLUME 8.1 fl (7.4-10.4); PLATELET 468 x1000/uL (130-400); RED BLOOD CELL COUNT 3.25 mill/uL (4.2-5.4); RED CELL DISTRIBUTION WIDTH 16.6 % (11.6-14.6)
[2018-01-25] MEDS: FAMOTIDINE 20MG/2ML VIAL IV SCH (09:13)
[2018-01-25] MEDS: METOPROLOL TARTRATE 50MG TABLET PO SCH ×2 (09:13→20:39)
[2018-01-25 11:15] LABS: PLATELET ESTIMATE INCREASED
[2018-01-25] MEDS: LORAZEPAM 2MG/ML CPJ IV PRN (11:58)
[2018-01-25] MEDS ORDERED: POTASSIUM CHLORIDE 20MEQ TABLET SR PO NR (12:30)
[2018-01-25] MEDS: LEVOFLOXACIN 500MG PREMIX 100 ML IV SCH (12:37)
[2018-01-25 13:25] LABS: BG BASE EXCESS 4.2 mmol/L (-2.0-2.0); BG CARBOXYHEMOGLOBIN 0.2 % (0.5-1.5); BG DEOXYHEMOGLOBIN 1.9 % (0.0-5.0); BG FRACTION INSPIRED OXYGEN 60; BG HCO3 ACT 27.6 mmol/L (22.0-26.0); BG METHEMOGLOBIN 0.3 % (0.0-1.5); BG OXYGEN SATURATION 98.1 % (92.0-98.5); BG OXYHEMOGLOBIN 97.6 % (94.0-97.0); BG PCO2 36.9 mmHg (35.0-45.0); BG PH 7.492 (7.350-7.450); BG PO2 106.8 mmHg (75.0-100.0); BG SAMPLE SITE RIGHT RADIAL; BG TIDAL VOLUME(mL) 450 mL; BG TOTAL HEMOGLOBIN 11.8 g/dL (12.0-18.0); BG VENT MODE VENT - A/C; BG VENT RATE 12 set
[2018-01-25] MEDS: NOREPINEPHRINE 16 MG in DEXT 5% WATER 234 ML IV PRN (15:40)
[2018-01-25] MEDS: DOCUSATE SODIUM SUGAR FREE 100MG/10ML UDC NG SCH (16:28)
[2018-01-25] MEDS: VANCOMYCIN 750 MG PREMIX 150 ML IV SCH (16:28)
[2018-01-25] MEDS: ATORVASTATIN CALCIUM 40MG TABLET PO SCH (20:38)
[2018-01-26] VITALS (96 sets, daily range): BP systolic 64–143; BP diastolic 21–85
[2018-01-26] MEDS: BLOOD SUGAR DIAGNOSTIC STRIP TEST SCH ×4 (00:06→17:42)
[2018-01-26] MEDS: INSULIN LISPRO 100 UNITS/ML SUBCUT SCH ×4 (00:10→17:42)
[2018-01-26] MEDS: IPRATROPIUM/ALBUTEROL 0.5-3(2.5)MG/3ML NEB HHN SCH ×6 (00:15→20:55)
[2018-01-26] MEDS: DILTIAZEM HCL 125 MG in DEXT 5% WATER 100 ML IV PRN (02:03)
[2018-01-26] MEDS: VANCOMYCIN 750 MG PREMIX 150 ML IV SCH (04:17)
[2018-01-26] MEDS: ACETAMINOPHEN 325MG TABLET PO PRN ×3 (04:23→17:43)
[2018-01-26 05:47] LABS: CHLORIDE 100 mEq/L (98-107)
[2018-01-26 05:48] LABS: HEMATOCRIT 25.1 % (36.0-48.0); HEMOGLOBIN 8.6 g/dL (12.0-16.0); MEAN CORPUSCULAR HEMOGLOBIN 28.3 pg (28.0-32.0); MEAN CORPUSCULAR VOLUME 82.5 fL (81.0-99.0); PLATELET 375 x1000/uL (130-400); RED BLOOD CELL COUNT 3.04 mill/uL (4.2-5.4); RED CELL DISTRIBUTION WIDTH 16.3 % (11.6-14.6)
[2018-01-26] MEDS: MEROPENEM 1,000 MG in SODIUM CHLORIDE 0.9% 100 ML IV SCH (06:05)
[2018-01-26 08:28] LABS: BG BASE EXCESS 5.8 mmol/L (-2.0-2.0); BG CARBOXYHEMOGLOBIN 0.3 % (0.5-1.5); BG DEOXYHEMOGLOBIN 3.4 % (0.0-5.0); BG FRACTION INSPIRED OXYGEN 50; BG HCO3 ACT 29.2 mmol/L (22.0-26.0); BG METHEMOGLOBIN 0.3 % (0.0-1.5); BG OXYGEN SATURATION 96.6 % (92.0-98.5); BG PCO2 37.6 mmHg (35.0-45.0); BG PH 7.508 (7.350-7.450); BG SAMPLE SITE RIGHT RADIAL; BG TIDAL VOLUME(mL) 450 mL; BG TOTAL HEMOGLOBIN 9.2 g/dL (12.0-18.0); BG VENT MODE VENT - A/C; BG VENT RATE 12 set
[2018-01-26] MEDS: DOCUSATE SODIUM SUGAR FREE 100MG/10ML UDC NG SCH ×2 (08:57→17:43)
[2018-01-26] MEDS: METOPROLOL TARTRATE 50MG TABLET PO SCH ×2 (08:58→20:32)
[2018-01-26] MEDS: FAMOTIDINE 20MG/2ML VIAL IV SCH (08:58)
[2018-01-26] MEDS: LORAZEPAM 2MG/ML CPJ IV PRN (09:27)
[2018-01-26] MEDS: MORPHINE SULFATE 4 MG/ML CPJ (NOT FOR IM USE) IV PRN ×2 (11:08→15:03)
[2018-01-26] MEDS ORDERED: PIPERACILLIN/TAZ 3.375G PREMIX 50 ML IV SCH (14:00)
[2018-01-26] MEDS: ATORVASTATIN CALCIUM 40MG TABLET PO SCH (20:47)
[2018-01-27] VITALS (88 sets, daily range): BP systolic 86–139; BP diastolic 45–76
[2018-01-27] MEDS: IPRATROPIUM/ALBUTEROL 0.5-3(2.5)MG/3ML NEB HHN SCH ×6 (00:10→20:15)
[2018-01-27] MEDS: BLOOD SUGAR DIAGNOSTIC STRIP TEST SCH ×4 (00:18→18:19)
[2018-01-27] MEDS: MORPHINE SULFATE 4 MG/ML CPJ (NOT FOR IM USE) IV PRN ×2 (00:35→22:31)
[2018-01-27] MEDS: ACETAMINOPHEN 325MG TABLET PO PRN ×2 (05:19→14:36)
[2018-01-27 05:34] LABS: HEMATOCRIT. 25.1 % (36.0-48.0); HEMOGLOBIN. 8.4 g/dL (12.0-16.0); MEAN CORPUSCULAR HEMOGLOBIN 27.8 pg (28.0-32.0); MEAN CORPUSCULAR VOLUME 82.8 fL (81.0-99.0); MEAN PLATELET VOLUME 7.9 fl (7.4-10.4); PLATELET 351 x1000/uL (130-400); RED BLOOD CELL COUNT 3.03 mill/uL (4.2-5.4); RED CELL DISTRIBUTION WIDTH 16.6 % (11.6-14.6)
[2018-01-27 05:45] LABS: CHLORIDE 102 mEq/L (98-107)
[2018-01-27] MEDS: INSULIN LISPRO 100 UNITS/ML SUBCUT SCH ×4 (06:00→18:00)
[2018-01-27 08:04] LABS: BG CARBOXYHEMOGLOBIN 0.3 % (0.5-1.5); BG FRACTION INSPIRED OXYGEN 50; BG HCO3 ACT 28.7 mmol/L (22.0-26.0); BG METHEMOGLOBIN 0.3 % (0.0-1.5); BG OXYHEMOGLOBIN 97.4 % (94.0-97.0); BG PH 7.485 (7.350-7.450); BG PO2 105.6 mmHg (75.0-100.0); BG SAMPLE SITE RIGHT BRACHIAL; BG TIDAL VOLUME(mL) 450 mL; BG VENT MODE VENT - A/C; BG VENT RATE 12 set
[2018-01-27] MEDS: METOPROLOL TARTRATE 50MG TABLET PO SCH ×2 (09:00→20:46)
[2018-01-27] MEDS: FAMOTIDINE 20MG/2ML VIAL IV SCH (09:27)
[2018-01-27] MEDS: DOCUSATE SODIUM SUGAR FREE 100MG/10ML UDC NG SCH ×2 (09:27→16:44)
[2018-01-27 10:51] LABS: PLATELET ESTIMATE NORMAL
[2018-01-27] MEDS: LEVOFLOXACIN 500MG PREMIX 100 ML IV SCH (11:23)
[2018-01-27] MEDS: ATORVASTATIN CALCIUM 40MG TABLET PO SCH (21:12)
[2018-01-28] VITALS (53 sets, daily range): BP systolic 95–150; BP diastolic 48–80
[2018-01-28] MEDS: IPRATROPIUM/ALBUTEROL 0.5-3(2.5)MG/3ML NEB HHN SCH ×6 (00:54→20:30)
[2018-01-28] MEDS: ACETAMINOPHEN 325MG TABLET PO PRN ×3 (05:33→21:14)
[2018-01-28 05:35] LABS: HEMOGLOBIN. 8.4 g/dL (12.0-16.0); MEAN CORPUSCULAR HEMOGLOBIN 28.7 pg (28.0-32.0); MEAN CORPUSCULAR VOLUME 81.8 fL (81.0-99.0); MEAN PLATELET VOLUME 8.1 fl (7.4-10.4); PLATELET 351 x1000/uL (130-400); RED BLOOD CELL COUNT 2.94 mill/uL (4.2-5.4); RED CELL DISTRIBUTION WIDTH 16.9 % (11.6-14.6)
[2018-01-28 05:45] LABS: CHLORIDE 100 mEq/L (98-107)
[2018-01-28] MEDS: INSULIN LISPRO 100 UNITS/ML SUBCUT SCH ×4 (05:54→17:52)
[2018-01-28] MEDS: BLOOD SUGAR DIAGNOSTIC STRIP TEST SCH ×4 (05:55→17:52)
[2018-01-28] MEDS: DOCUSATE SODIUM SUGAR FREE 100MG/10ML UDC NG SCH ×2 (08:15→17:52)
[2018-01-28] MEDS: FAMOTIDINE 20MG/2ML VIAL IV SCH (08:15)
[2018-01-28 08:25] LABS: BG BASE EXCESS 4.5 mmol/L (-2.0-2.0); BG CARBOXYHEMOGLOBIN 0.4 % (0.5-1.5); BG DEOXYHEMOGLOBIN 2.5 % (0.0-5.0); BG HCO3 ACT 28.4 mmol/L (22.0-26.0); BG METHEMOGLOBIN 0.3 % (0.0-1.5); BG OXYGEN SATURATION 97.5 % (92.0-98.5); BG OXYHEMOGLOBIN 96.8 % (94.0-97.0); BG PCO2 39.5 mmHg (35.0-45.0); BG PH 7.475 (7.350-7.450); BG PO2 99.2 mmHg (75.0-100.0); BG SAMPLE SITE RIGHT BRACHIAL; BG TIDAL VOLUME(mL) 450 mL; BG TOTAL HEMOGLOBIN 8.1 g/dL (12.0-18.0); BG VENT MODE VENT - A/C; BG VENT RATE 12 set
[2018-01-28] MEDS: METOPROLOL TARTRATE 50MG TABLET PO SCH ×2 (09:00→21:14)
[2018-01-28 11:28] LABS: PLATELET ESTIMATE NORMAL
[2018-01-28] MEDS: ATORVASTATIN CALCIUM 40MG TABLET PO SCH (21:14)
[2018-01-29] VITALS (52 sets, daily range): BP systolic 98–138; BP diastolic 48–90
[2018-01-29] MEDS: IPRATROPIUM/ALBUTEROL 0.5-3(2.5)MG/3ML NEB HHN SCH ×6 (01:10→20:09)
[2018-01-29] MEDS: BLOOD SUGAR DIAGNOSTIC STRIP TEST SCH ×4 (05:54→18:09)
[2018-01-29] MEDS: INSULIN LISPRO 100 UNITS/ML SUBCUT SCH ×4 (05:54→18:00)
[2018-01-29 06:07] LABS: HEMATOCRIT. 23.3 % (36.0-48.0); HEMOGLOBIN. 7.9 g/dL (12.0-16.0); MEAN CORPUSCULAR VOLUME 82.8 fL (81.0-99.0); MEAN PLATELET VOLUME 8.5 fl (7.4-10.4); PLATELET 344 x1000/uL (130-400); RED BLOOD CELL COUNT 2.81 mill/uL (4.2-5.4); RED CELL DISTRIBUTION WIDTH 16.8 % (11.6-14.6)
[2018-01-29 06:16] LABS: CHLORIDE 102 mEq/L (98-107)
[2018-01-29] MEDS: DOCUSATE SODIUM SUGAR FREE 100MG/10ML UDC NG SCH ×2 (08:12→18:49)
[2018-01-29] MEDS: METOPROLOL TARTRATE 50MG TABLET PO SCH ×2 (08:13→20:45)
[2018-01-29] MEDS: FAMOTIDINE 20MG/2ML VIAL IV SCH (08:13)
[2018-01-29 08:36] LABS: BG BASE EXCESS 7.7 mmol/L (-2.0-2.0); BG DEOXYHEMOGLOBIN 4.4 % (0.0-5.0); BG FRACTION INSPIRED OXYGEN 40; BG HCO3 ACT 31.5 mmol/L (22.0-26.0); BG METHEMOGLOBIN 0.3 % (0.0-1.5); BG OXYGEN SATURATION 95.6 % (92.0-98.5); BG OXYHEMOGLOBIN 95.3 % (94.0-97.0); BG PCO2 40.9 mmHg (35.0-45.0); BG PH 7.504 (7.350-7.450); BG PO2 76.1 mmHg (75.0-100.0); BG SAMPLE SITE RIGHT BRACHIAL; BG TIDAL VOLUME(mL) 450 mL; BG TOTAL HEMOGLOBIN 8.7 g/dL (12.0-18.0); BG VENT MODE VENT - A/C; BG VENT RATE 12 set
[2018-01-29] MEDS: LEVOFLOXACIN 500MG PREMIX 100 ML IV SCH (11:25)
[2018-01-29] MEDS: ACETAMINOPHEN 650MG/20.3ML UDC PO PRN (15:24)
[2018-01-29] MEDS ORDERED: LORAZEPAM 2MG/ML CPJ IV NR (15:45)
[2018-01-29 19:04] LABS: PLATELET ESTIMATE NORMAL
[2018-01-29] MEDS: ATORVASTATIN CALCIUM 40MG TABLET PO SCH (20:44)
[2018-01-30] VITALS (49 sets, daily range): BP systolic 99–191; BP diastolic 42–113
[2018-01-30] MEDS: IPRATROPIUM/ALBUTEROL 0.5-3(2.5)MG/3ML NEB HHN SCH ×5 (00:10→20:05)
[2018-01-30] MEDS: BLOOD SUGAR DIAGNOSTIC STRIP TEST SCH ×4 (00:43→17:16)
[2018-01-30] MEDS: INSULIN LISPRO 100 UNITS/ML SUBCUT SCH ×4 (06:00→18:00)
[2018-01-30 06:38] LABS: HEMOGLOBIN 9.6 g/dL (12.0-16.0); MEAN CORPUSCULAR HEMOGLOBIN 28.8 pg (28.0-32.0); MEAN CORPUSCULAR VOLUME 83.8 fL (81.0-99.0); PLATELET 363 x1000/uL (130-400); RED BLOOD CELL COUNT 3.34 mill/uL (4.2-5.4)
[2018-01-30 06:44] LABS: CHLORIDE 104 mEq/L (98-107)
[2018-01-30 08:28] LABS: BG BASE EXCESS 4.7 mmol/L (-2.0-2.0); BG CARBOXYHEMOGLOBIN 0.1 % (0.5-1.5); BG DEOXYHEMOGLOBIN 4.5 % (0.0-5.0); BG HCO3 ACT 27.9 mmol/L (22.0-26.0); BG METHEMOGLOBIN 0.2 % (0.0-1.5); BG OXYGEN SATURATION 95.5 % (92.0-98.5); BG OXYHEMOGLOBIN 95.2 % (94.0-97.0); BG PCO2 36.2 mmHg (35.0-45.0); BG PH 7.505 (7.350-7.450); BG PO2 78.1 mmHg (75.0-100.0); BG SAMPLE SITE RIGHT BRACHIAL; BG TIDAL VOLUME(mL) 450 mL; BG TOTAL HEMOGLOBIN 9.9 g/dL (12.0-18.0); BG VENT MODE VENT - A/C; BG VENT RATE 12 set
[2018-01-30] MEDS: DOCUSATE SODIUM SUGAR FREE 100MG/10ML UDC NG SCH ×2 (09:37→17:00)
[2018-01-30] MEDS: FAMOTIDINE 20MG/2ML VIAL IV SCH (09:37)
[2018-01-30] MEDS: METOPROLOL TARTRATE 50MG TABLET PO SCH ×2 (09:37→21:00)
[2018-01-30] MEDS ORDERED: LORAZEPAM 2MG/ML CPJ IV PRN (14:00)
[2018-01-30] MEDS: MEROPENEM 1,000 MG in SODIUM CHLORIDE 0.9% 100 ML IV SCH ×2 (15:11→21:12)
[2018-01-30] MEDS: MORPHINE SULFATE 4 MG/ML CPJ (NOT FOR IM USE) IV PRN (17:31)
[2018-01-30] MEDS: ACETAMINOPHEN 650MG/20.3ML UDC PO PRN (19:48)
[2018-01-30] MEDS ORDERED: PROPOFOL 10MG/ML 100ML 100 ML IV PRN (20:00)
[2018-01-30] MEDS ORDERED: IPRATROPIUM/ALBUTEROL 0.5-3(2.5)MG/3ML NEB HHN PRN (20:00)
[2018-01-30] MEDS ORDERED: MORPHINE SULFATE 4 MG/ML CPJ (NOT FOR IM USE) IV PRN (20:08)
[2018-01-30] MEDS ORDERED: PHENYLEPHRINE 40 MG in DEXT 5% WATER 496 ML IV PRN (20:15)
[2018-01-30] MEDS: ATORVASTATIN CALCIUM 40MG TABLET PO SCH (21:12)
[2018-01-31] VITALS (51 sets, daily range): BP systolic 96–161; BP diastolic 41–88
[2018-01-31] MEDS ORDERED: IPRATROPIUM/ALBUTEROL 0.5-3(2.5)MG/3ML NEB HHN SCH
[2018-01-31] MEDS: IPRATROPIUM/ALBUTEROL 0.5-3(2.5)MG/3ML NEB HHN SCH ×6 (00:16→19:39)
[2018-01-31] MEDS: BLOOD SUGAR DIAGNOSTIC STRIP TEST SCH ×5 (00:23→23:24)
[2018-01-31] MEDS: INSULIN LISPRO 100 UNITS/ML SUBCUT SCH ×5 (00:27→23:24)
[2018-01-31] MEDS: MEROPENEM 1,000 MG in SODIUM CHLORIDE 0.9% 100 ML IV SCH ×3 (05:14→21:10)
[2018-01-31 05:42] LABS: HEMATOCRIT. 28.7 % (36.0-48.0); HEMOGLOBIN. 9.5 g/dL (12.0-16.0); MEAN CORPUSCULAR VOLUME 84.8 fL (81.0-99.0); MEAN PLATELET VOLUME 8.3 fl (7.4-10.4); PLATELET 394 x1000/uL (130-400); RED BLOOD CELL COUNT 3.38 mill/uL (4.2-5.4); RED CELL DISTRIBUTION WIDTH 17.2 % (11.6-14.6)
[2018-01-31 05:51] LABS: CHLORIDE 106 mEq/L (98-107)
[2018-01-31] MEDS: MORPHINE SULFATE 4 MG/ML CPJ (NOT FOR IM USE) IV PRN ×2 (06:47→18:25)
[2018-01-31 08:47] LABS: BG BASE EXCESS 4.6 mmol/L (-2.0-2.0); BG CARBOXYHEMOGLOBIN 0.3 % (0.5-1.5); BG DEOXYHEMOGLOBIN 3.8 % (0.0-5.0); BG FRACTION INSPIRED OXYGEN 40; BG HCO3 ACT 27.8 mmol/L (22.0-26.0); BG METHEMOGLOBIN 0.3 % (0.0-1.5); BG OXYGEN SATURATION 96.2 % (92.0-98.5); BG OXYHEMOGLOBIN 95.6 % (94.0-97.0); BG PCO2 35.8 mmHg (35.0-45.0); BG PH 7.508 (7.350-7.450); BG PO2 81.8 mmHg (75.0-100.0); BG SAMPLE SITE RIGHT BRACHIAL; BG TIDAL VOLUME(mL) 450 mL; BG TOTAL HEMOGLOBIN 9.8 g/dL (12.0-18.0); BG VENT MODE VENT - A/C; BG VENT RATE 12 set
[2018-01-31 09:36] LABS: ATYPICAL LYMPHOCYTES 1
[2018-01-31 09:37] LABS: PLATELET ESTIMATE NORMAL
[2018-01-31] MEDS: DOCUSATE SODIUM SUGAR FREE 100MG/10ML UDC NG SCH ×2 (10:02→17:00)
[2018-01-31] MEDS: METOPROLOL TARTRATE 50MG TABLET PO SCH ×2 (10:02→20:51)
[2018-01-31] MEDS: FAMOTIDINE 20MG/2ML VIAL IV SCH (10:03)
[2018-01-31] MEDS: LEVOFLOXACIN 500MG PREMIX 100 ML IV SCH (10:03)
[2018-01-31] MEDS ORDERED: VANCOMYCIN 1 G PREMIX 200 ML IV NR (15:30)
[2018-01-31] MEDS: ACETAMINOPHEN 650MG/20.3ML UDC PO PRN (18:24)
[2018-01-31] MEDS: ATORVASTATIN CALCIUM 40MG TABLET PO SCH (20:50)
[2018-02-01] VITALS (42 sets, daily range): BP systolic 99–159; BP diastolic 49–77
[2018-02-01] MEDS: IPRATROPIUM/ALBUTEROL 0.5-3(2.5)MG/3ML NEB HHN SCH ×6 (00:27→20:08)
[2018-02-01] MEDS: VANCOMYCIN 750 MG PREMIX 150 ML IV SCH ×2 (02:45→15:49)
[2018-02-01] MEDS: MEROPENEM 1,000 MG in SODIUM CHLORIDE 0.9% 100 ML IV SCH ×3 (05:23→21:01)
[2018-02-01] MEDS: INSULIN LISPRO 100 UNITS/ML SUBCUT SCH ×4 (05:38→23:57)
[2018-02-01] MEDS: BLOOD SUGAR DIAGNOSTIC STRIP TEST SCH ×3 (05:38→18:28)
[2018-02-01] MEDS: METOPROLOL TARTRATE 50MG TABLET PO SCH ×2 (09:16→21:02)
[2018-02-01] MEDS: FAMOTIDINE 20MG/2ML VIAL IV SCH (09:16)
[2018-02-01] MEDS: MORPHINE SULFATE 4 MG/ML CPJ (NOT FOR IM USE) IV PRN (09:23)
[2018-02-01] MEDS: DOCUSATE SODIUM SUGAR FREE 100MG/10ML UDC NG SCH ×2 (09:27→18:30)
[2018-02-01 09:31] LABS: HEMATOCRIT. 27.2 % (36.0-48.0); HEMOGLOBIN. 9.1 g/dL (12.0-16.0); MEAN CORPUSCULAR HEMOGLOBIN 28.2 pg (28.0-32.0); MEAN CORPUSCULAR VOLUME 84.3 fL (81.0-99.0); MEAN PLATELET VOLUME 8.4 fl (7.4-10.4); PLATELET 385 x1000/uL (130-400); RED BLOOD CELL COUNT 3.22 mill/uL (4.2-5.4); RED CELL DISTRIBUTION WIDTH 17.3 % (11.6-14.6)
[2018-02-01 09:40] LABS: CHLORIDE 106 mEq/L (98-107)
[2018-02-01 10:06] LABS: PLATELET ESTIMATE NORMAL
[2018-02-01] MEDS: ACETAMINOPHEN 650MG/20.3ML UDC PO PRN (15:45)
[2018-02-01] MEDS: ATORVASTATIN CALCIUM 40MG TABLET PO SCH (21:01)
[2018-02-02] VITALS (44 sets, daily range): BP systolic 127–157; BP diastolic 56–95
[2018-02-02] MEDS: IPRATROPIUM/ALBUTEROL 0.5-3(2.5)MG/3ML NEB HHN SCH ×7 (00:03→23:52)
[2018-02-02 03:34] LABS: HEMATOCRIT. 27.3 % (36.0-48.0); HEMOGLOBIN. 9.1 g/dL (12.0-16.0); MEAN CORPUSCULAR HEMOGLOBIN 28.4 pg (28.0-32.0); MEAN CORPUSCULAR VOLUME 84.7 fL (81.0-99.0); MEAN PLATELET VOLUME 8.6 fl (7.4-10.4); PLATELET 396 x1000/uL (130-400); RED BLOOD CELL COUNT 3.22 mill/uL (4.2-5.4); RED CELL DISTRIBUTION WIDTH 17.5 % (11.6-14.6)
[2018-02-02 03:35] LABS: CHLORIDE 108 mEq/L (98-107)
[2018-02-02] MEDS: VANCOMYCIN 750 MG PREMIX 150 ML IV SCH (04:14)
[2018-02-02] MEDS: MEROPENEM 1,000 MG in SODIUM CHLORIDE 0.9% 100 ML IV SCH ×3 (05:59→21:30)
[2018-02-02] MEDS: INSULIN LISPRO 100 UNITS/ML SUBCUT SCH ×4 (05:59→23:41)
[2018-02-02] MEDS: BLOOD SUGAR DIAGNOSTIC STRIP TEST SCH ×5 (06:00→23:42)
[2018-02-02 07:27] LABS: NUCLEATED RED BLOOD CELLS 2 /100 WBC; PLATELET ESTIMATE NORMAL
[2018-02-02] MEDS: DOCUSATE SODIUM SUGAR FREE 100MG/10ML UDC NG SCH ×2 (08:52→16:47)
[2018-02-02] MEDS: FAMOTIDINE 20MG/2ML VIAL IV SCH (08:52)
[2018-02-02] MEDS: METOPROLOL TARTRATE 50MG TABLET PO SCH ×2 (08:57→21:29)
[2018-02-02] MEDS: ACETAMINOPHEN 650MG/20.3ML UDC PO PRN (10:39)
[2018-02-02] MEDS: LEVOFLOXACIN 500MG PREMIX 100 ML IV SCH (10:45)
[2018-02-02 13:16] LABS: BG CARBOXYHEMOGLOBIN 0.3 % (0.5-1.5); BG DEOXYHEMOGLOBIN 4.3 % (0.0-5.0); BG HCO3 ACT 29.9 mmol/L (22.0-26.0); BG METHEMOGLOBIN 0.3 % (0.0-1.5); BG OXYGEN SATURATION 95.7 % (92.0-98.5); BG OXYHEMOGLOBIN 95.1 % (94.0-97.0); BG PCO2 40.7 mmHg (35.0-45.0); BG PH 7.484 (7.350-7.450); BG PO2 77.6 mmHg (75.0-100.0); BG SAMPLE SITE RIGHT BRACHIAL; BG TIDAL VOLUME(mL) 450 mL; BG TOTAL HEMOGLOBIN 10.6 g/dL (12.0-18.0); BG VENT MODE VENT - A/C; BG VENT RATE 12 set
[2018-02-02] MEDS: FUROSEMIDE 40MG/4ML VIAL IVP SCH (14:04)
[2018-02-02] MEDS: ACETYLCYSTEINE 100MG/ML 10% VIAL 4ML INH SCH ×2 (15:36→23:51)
[2018-02-02] MEDS: MORPHINE SULFATE 4 MG/ML CPJ (NOT FOR IM USE) IV PRN ×2 (18:37→23:38)
[2018-02-02] MEDS: ATORVASTATIN CALCIUM 40MG TABLET PO SCH (21:28)
[2018-02-03] VITALS (25 sets, daily range): BP systolic 67–148; BP diastolic 44–73
[2018-02-03] MEDS: IPRATROPIUM/ALBUTEROL 0.5-3(2.5)MG/3ML NEB HHN SCH ×5 (04:31→20:05)
[2018-02-03 05:31] LABS: HEMATOCRIT. 29.6 % (36.0-48.0); HEMOGLOBIN. 9.8 g/dL (12.0-16.0); MEAN CORPUSCULAR HEMOGLOBIN 28.2 pg (28.0-32.0); MEAN CORPUSCULAR VOLUME 85.1 fL (81.0-99.0); MEAN PLATELET VOLUME 8.7 fl (7.4-10.4); PLATELET 413 x1000/uL (130-400); RED BLOOD CELL COUNT 3.48 mill/uL (4.2-5.4); RED CELL DISTRIBUTION WIDTH 17.9 % (11.6-14.6)
[2018-02-03 05:45] LABS: CHLORIDE 104 mEq/L (98-107)
[2018-02-03] MEDS: INSULIN LISPRO 100 UNITS/ML SUBCUT SCH ×3 (06:00→18:00)
[2018-02-03] MEDS: MEROPENEM 1,000 MG in SODIUM CHLORIDE 0.9% 100 ML IV SCH ×3 (06:28→21:46)
[2018-02-03] MEDS: BLOOD SUGAR DIAGNOSTIC STRIP TEST SCH ×3 (06:28→18:27)
[2018-02-03] MEDS: ACETYLCYSTEINE 100MG/ML 10% VIAL 4ML INH SCH ×2 (08:29→16:17)
[2018-02-03] MEDS: METOPROLOL TARTRATE 50MG TABLET PO SCH ×2 (09:15→21:46)
[2018-02-03] MEDS: FUROSEMIDE 40MG/4ML VIAL IVP SCH (09:15)
[2018-02-03] MEDS: FAMOTIDINE 20MG/2ML VIAL IV SCH (09:15)
[2018-02-03] MEDS: DOCUSATE SODIUM SUGAR FREE 100MG/10ML UDC NG SCH ×2 (09:15→16:45)
[2018-02-03 10:44] LABS: PLATELET ESTIMATE SLIGHTLY INCREASED
[2018-02-03] MEDS: LORAZEPAM 2MG/ML CPJ IV PRN ×2 (11:20→17:05)
[2018-02-03] MEDS: ACETAMINOPHEN 650MG/20.3ML UDC PO PRN (16:45)
[2018-02-03] MEDS: FLUCONAZOLE 400MG/200ML BAG 200 ML IV SCH (18:31)
[2018-02-03] MEDS: ATORVASTATIN CALCIUM 40MG TABLET PO SCH (21:46)
[2018-02-04] VITALS (25 sets, daily range): BP systolic 109–145; BP diastolic 57–107
[2018-02-04] MEDS: IPRATROPIUM/ALBUTEROL 0.5-3(2.5)MG/3ML NEB HHN SCH ×7 (00:10→23:53)
[2018-02-04] MEDS: ACETYLCYSTEINE 100MG/ML 10% VIAL 4ML INH SCH ×4 (00:10→23:54)
[2018-02-04] MEDS: BLOOD SUGAR DIAGNOSTIC STRIP TEST SCH ×5 (00:10→23:57)
[2018-02-04] MEDS: INSULIN LISPRO 100 UNITS/ML SUBCUT SCH ×5 (05:29→23:57)
[2018-02-04] MEDS: MEROPENEM 1,000 MG in SODIUM CHLORIDE 0.9% 100 ML IV SCH ×2 (05:36→13:41)
[2018-02-04 05:37] LABS: HEMATOCRIT 28.9 % (36.0-48.0); HEMOGLOBIN 9.7 g/dL (12.0-16.0); MEAN CORPUSCULAR HEMOGLOBIN 28.2 pg (28.0-32.0); MEAN CORPUSCULAR VOLUME 84.6 fL (81.0-99.0); PLATELET 411 x1000/uL (130-400); RED BLOOD CELL COUNT 3.42 mill/uL (4.2-5.4); RED CELL DISTRIBUTION WIDTH 17.4 % (11.6-14.6)
[2018-02-04 05:48] LABS: CHLORIDE 106 mEq/L (98-107)
[2018-02-04 06:22] LABS: CREATINE KINASE 4122 IU/L (26-192)
[2018-02-04 07:43] LABS: BG BASE EXCESS 12.3 mmol/L (-2.0-2.0); BG CARBOXYHEMOGLOBIN 0.2 % (0.5-1.5); BG DEOXYHEMOGLOBIN 6.6 % (0.0-5.0); BG HCO3 ACT 36.7 mmol/L (22.0-26.0); BG METHEMOGLOBIN 0.2 % (0.0-1.5); BG OXYGEN SATURATION 93.4 % (92.0-98.5); BG PCO2 47.2 mmHg (35.0-45.0); BG PH 7.509 (7.350-7.450); BG PO2 67.5 mmHg (75.0-100.0); BG SAMPLE SITE RIGHT RADIAL; BG TIDAL VOLUME(mL) 450 mL; BG TOTAL HEMOGLOBIN 10.3 g/dL (12.0-18.0); BG VENT MODE VENT - A/C; BG VENT RATE 12 set
[2018-02-04] MEDS: FAMOTIDINE 20MG/2ML VIAL IV SCH (09:12)
[2018-02-04] MEDS: DOCUSATE SODIUM SUGAR FREE 100MG/10ML UDC NG SCH ×2 (09:13→18:16)
[2018-02-04] MEDS: METOPROLOL TARTRATE 50MG TABLET PO SCH ×2 (09:13→20:40)
[2018-02-04] MEDS: FUROSEMIDE 40MG/4ML VIAL IVP SCH (09:13)
[2018-02-04] MEDS ORDERED: POTASSIUM CHLORIDE 20MEQ/PACKET PO SCH (10:30)
[2018-02-04] MEDS: LEVOFLOXACIN 500MG PREMIX 100 ML IV SCH (11:23)
[2018-02-04] MEDS: MORPHINE SULFATE 4 MG/ML CPJ (NOT FOR IM USE) IV PRN (12:02)
[2018-02-04] MEDS ORDERED: LIDOCAINE HCL/PF 1% 2ML VIAL ONE (13:25)
[2018-02-04] MEDS: ACETAMINOPHEN 650MG/20.3ML UDC PO PRN ×2 (13:42→20:41)
[2018-02-04] MEDS ORDERED: LIDOCAINE HCL 1% 10 MG/ML 10ML VIAL ONE (14:00)
[2018-02-04] MEDS: FLUCONAZOLE 400MG/200ML BAG 200 ML IV SCH (18:16)
[2018-02-04] MEDS: ATORVASTATIN CALCIUM 40MG TABLET PO SCH (20:40)
[2018-02-05] VITALS (25 sets, daily range): BP systolic 95–165; BP diastolic 53–91
[2018-02-05] MEDS: MEROPENEM 1,000 MG in SODIUM CHLORIDE 0.9% 100 ML IV SCH ×2 (00:01→05:58)
[2018-02-05] MEDS: IPRATROPIUM/ALBUTEROL 0.5-3(2.5)MG/3ML NEB HHN SCH ×5 (03:39→20:21)
[2018-02-05] MEDS: BLOOD SUGAR DIAGNOSTIC STRIP TEST SCH ×4 (05:54→23:51)
[2018-02-05] MEDS: INSULIN LISPRO 100 UNITS/ML SUBCUT SCH ×4 (05:54→23:51)
[2018-02-05 05:56] LABS: HEMOGLOBIN. 9.5 g/dL (12.0-16.0); MEAN CORPUSCULAR HEMOGLOBIN 27.9 pg (28.0-32.0); MEAN CORPUSCULAR VOLUME 84.9 fL (81.0-99.0); MEAN PLATELET VOLUME 8.8 fl (7.4-10.4); PLATELET 401 x1000/uL (130-400); RED BLOOD CELL COUNT 3.41 mill/uL (4.2-5.4); RED CELL DISTRIBUTION WIDTH 17.8 % (11.6-14.6)
[2018-02-05 06:01] LABS: CHLORIDE 105 mEq/L (98-107)
[2018-02-05 06:54] LABS: INR 1.2; PROTHROMBIN TIME 11.7 sec (9.1-11.1)
[2018-02-05] MEDS: ACETYLCYSTEINE 100MG/ML 10% VIAL 4ML INH SCH (08:06)
[2018-02-05] MEDS: DOCUSATE SODIUM SUGAR FREE 100MG/10ML UDC NG SCH ×2 (09:36→16:32)
[2018-02-05] MEDS: FAMOTIDINE 20MG/2ML VIAL IV SCH (09:36)
[2018-02-05] MEDS: METOPROLOL TARTRATE 50MG TABLET PO SCH ×2 (09:36→21:00)
[2018-02-05] MEDS: FUROSEMIDE 40MG/4ML VIAL IVP SCH (09:36)
[2018-02-05 10:24] LABS: PLATELET ESTIMATE NORMAL
[2018-02-05] MEDS ORDERED: LIDOCAINE HCL/EPINEPHRINE 1%-EPI 1:100,000 20 ML VIAL ONE (13:29)
[2018-02-05] MEDS ORDERED: FENTANYL CITRATE/PF 50MCG/ML 5ML VIAL ONE (14:22)
[2018-02-05] MEDS ORDERED: ROCURONIUM BROMIDE 10MG/ML VIAL 5ML IV ONE (14:22)
[2018-02-05] MEDS ORDERED: MIDAZOLAM HCL 2 MG/2 ML VIAL ONE (14:23)
[2018-02-05 16:25] LABS: HEPATITIS B SURFACE ANTIGEN NEGATIVE
[2018-02-05 16:53] LABS: HEPATITIS B CORE AB IGM NEGATIVE
[2018-02-05 16:55] LABS: HEPATITIS A AB IGM NEGATIVE (NEGATIVE)
[2018-02-05] MEDS: FLUCONAZOLE 400MG/200ML BAG 200 ML IV SCH (17:18)
[2018-02-05] MEDS: ACETAMINOPHEN 650MG/20.3ML UDC PO PRN (17:18)
[2018-02-05] MEDS: ATORVASTATIN CALCIUM 40MG TABLET PO SCH (21:05)
[2018-02-05] MEDS: DEXTROSE 5% WATER 1,000 ML IV SCH ×2 (21:06)
[2018-02-06] VITALS (24 sets, daily range): BP systolic 99–128; BP diastolic 56–78
[2018-02-06] MEDS: IPRATROPIUM/ALBUTEROL 0.5-3(2.5)MG/3ML NEB HHN SCH ×6 (00:20→21:06)
[2018-02-06 05:04] LABS: HEMATOCRIT 27.7 % (36.0-48.0); HEMOGLOBIN 9.2 g/dL (12.0-16.0); MEAN CORPUSCULAR HEMOGLOBIN 28.1 pg (28.0-32.0); MEAN CORPUSCULAR VOLUME 84.3 fL (81.0-99.0); PLATELET 379 x1000/uL (130-400); RED BLOOD CELL COUNT 3.28 mill/uL (4.2-5.4); RED CELL DISTRIBUTION WIDTH 18.2 % (11.6-14.6)
[2018-02-06 05:12] LABS: CHLORIDE 99 mEq/L (98-107)
[2018-02-06 05:33] LABS: CREATINE KINASE 2206 IU/L (26-192)
[2018-02-06] MEDS: BLOOD SUGAR DIAGNOSTIC STRIP TEST SCH ×3 (05:43→17:59)
[2018-02-06] MEDS: INSULIN LISPRO 100 UNITS/ML SUBCUT SCH ×3 (05:43→17:59)
[2018-02-06] MEDS ORDERED: POTASSIUM CHLORIDE 20MEQ/PACKET PO SCH ×2 (08:15→14:30)
[2018-02-06] MEDS: DOCUSATE SODIUM SUGAR FREE 100MG/10ML UDC NG SCH ×2 (08:42→17:00)
[2018-02-06] MEDS: FAMOTIDINE 20MG/2ML VIAL IV SCH (08:43)
[2018-02-06] MEDS: FUROSEMIDE 40MG/4ML VIAL IVP SCH (08:43)
[2018-02-06] MEDS: METOPROLOL TARTRATE 50MG TABLET PO SCH ×2 (08:43→21:02)
[2018-02-06 09:24] LABS: BG CARBOXYHEMOGLOBIN 0.3 % (0.5-1.5); BG DEOXYHEMOGLOBIN 4.9 % (0.0-5.0); BG FRACTION INSPIRED OXYGEN 40; BG HCO3 ACT 32.3 mmol/L (22.0-26.0); BG METHEMOGLOBIN 0.4 % (0.0-1.5); BG OXYGEN SATURATION 95.1 % (92.0-98.5); BG OXYHEMOGLOBIN 94.4 % (94.0-97.0); BG PCO2 34.8 mmHg (35.0-45.0); BG PH 7.586 (7.350-7.450); BG SAMPLE SITE RIGHT BRACHIAL; BG TIDAL VOLUME(mL) 450 mL; BG TOTAL HEMOGLOBIN 10.5 g/dL (12.0-18.0); BG VENT MODE VENT - A/C; BG VENT RATE 12 set
[2018-02-06] MEDS: LEVOFLOXACIN 500MG PREMIX 100 ML IV SCH (11:40)
[2018-02-06] MEDS: METRONIDAZOLE 500MG TABLET PO SCH ×2 (14:22→21:01)
[2018-02-06] MEDS: FLUCONAZOLE 400MG/200ML BAG 200 ML IV SCH (17:45)
[2018-02-06] MEDS: DEXTROSE 5% WATER 1,000 ML IV SCH (20:18)
[2018-02-06] MEDS: ATORVASTATIN CALCIUM 40MG TABLET PO SCH (21:01)
[2018-02-06] MEDS ORDERED: IOHEXOL-300 100 ML BOTTLE ONE (22:25)
[2018-02-07] VITALS (24 sets, daily range): BP systolic 98–146; BP diastolic 59–88
[2018-02-07] MEDS: IPRATROPIUM/ALBUTEROL 0.5-3(2.5)MG/3ML NEB HHN SCH ×5 (00:50→19:32)
[2018-02-07] MEDS: ENOXAPARIN 60MG/0.6ML SYR SUBCUT SCH ×2 (01:05→13:35)
[2018-02-07 05:24] LABS: HEMATOCRIT. 28.4 % (36.0-48.0); HEMOGLOBIN. 9.4 g/dL (12.0-16.0); MEAN CORPUSCULAR HEMOGLOBIN 27.9 pg (28.0-32.0); MEAN CORPUSCULAR VOLUME 84.2 fL (81.0-99.0); MEAN PLATELET VOLUME 8.9 fl (7.4-10.4); PLATELET 402 x1000/uL (130-400); RED BLOOD CELL COUNT 3.38 mill/uL (4.2-5.4); RED CELL DISTRIBUTION WIDTH 17.7 % (11.6-14.6)
[2018-02-07 05:39] LABS: CHLORIDE 100 mEq/L (98-107)
[2018-02-07] MEDS: INSULIN LISPRO 100 UNITS/ML SUBCUT SCH ×4 (06:00→18:00)
[2018-02-07 06:12] LABS: CREATINE KINASE 3013 IU/L (26-192)
[2018-02-07] MEDS: BLOOD SUGAR DIAGNOSTIC STRIP TEST SCH ×4 (06:44→18:32)
[2018-02-07 07:45] LABS: INR 1.2; PARTIAL THROMBOPLASTIN TIME 33.5 sec (23.4-31.0); PROTHROMBIN TIME 12.3 sec (9.1-11.1)
[2018-02-07] MEDS: DOCUSATE SODIUM SUGAR FREE 100MG/10ML UDC NG SCH ×2 (09:00→17:33)
[2018-02-07 09:16] LABS: PLATELET ESTIMATE NORMAL
[2018-02-07] MEDS: FAMOTIDINE 20MG/2ML VIAL IV SCH (10:05)
[2018-02-07] MEDS: METOPROLOL TARTRATE 50MG TABLET PO SCH ×2 (10:05→21:36)
[2018-02-07] MEDS: METRONIDAZOLE 500MG TABLET PO SCH ×2 (10:05→21:39)
[2018-02-07] MEDS: DEXTROSE 5% WATER 1,000 ML IV SCH (13:40)
[2018-02-07] MEDS ORDERED: LIDOCAINE HCL 1% 10 MG/ML 10ML VIAL ONE (14:10)
[2018-02-07] MEDS ORDERED: CEFEPIME 1,000 MG in DEXTROSE 5% WATER 50 ML IV SCH (14:15)
[2018-02-07] MEDS: CEFTAZIDIME PENTAHYDRATE 1 G in DEXTROSE 5% WATER 50 ML IV SCH (17:23)
[2018-02-07] MEDS: MORPHINE SULFATE 4 MG/ML CPJ (NOT FOR IM USE) IV PRN (17:24)
[2018-02-07] MEDS: FLUCONAZOLE 400MG/200ML BAG 200 ML IV SCH (17:34)
[2018-02-07] MEDS: ATORVASTATIN CALCIUM 40MG TABLET PO SCH (21:36)
[2018-02-08] VITALS (20 sets, daily range): BP systolic 119–154; BP diastolic 59–80
[2018-02-08] MEDS: IPRATROPIUM/ALBUTEROL 0.5-3(2.5)MG/3ML NEB HHN SCH ×5 (00:40→23:50)
[2018-02-08] MEDS: ENOXAPARIN 60MG/0.6ML SYR SUBCUT SCH ×2 (01:45→11:05)
[2018-02-08] MEDS: MORPHINE SULFATE 4 MG/ML CPJ (NOT FOR IM USE) IV PRN ×2 (05:05→16:34)
[2018-02-08] MEDS: CEFTAZIDIME PENTAHYDRATE 1 G in DEXTROSE 5% WATER 50 ML IV SCH ×2 (05:44→16:00)
[2018-02-08] MEDS: METRONIDAZOLE 500MG TABLET PO SCH ×3 (05:45→21:03)
[2018-02-08] MEDS: INSULIN LISPRO 100 UNITS/ML SUBCUT SCH ×4 (05:45→18:00)
[2018-02-08] MEDS: BLOOD SUGAR DIAGNOSTIC STRIP TEST SCH ×4 (05:46→18:52)
[2018-02-08 06:35] LABS: HEMATOCRIT 26.8 % (36.0-48.0); HEMOGLOBIN 8.9 g/dL (12.0-16.0); MEAN CORPUSCULAR HEMOGLOBIN 28.6 pg (28.0-32.0); MEAN CORPUSCULAR VOLUME 85.6 fL (81.0-99.0); PLATELET 412 x1000/uL (130-400); RED BLOOD CELL COUNT 3.13 mill/uL (4.2-5.4); RED CELL DISTRIBUTION WIDTH 18.3 % (11.6-14.6)
[2018-02-08 06:40] LABS: CHLORIDE 92 mEq/L (98-107)
[2018-02-08] MEDS ORDERED: POTASSIUM CHLORIDE 20MEQ/PACKET PO NR (08:15)
[2018-02-08] MEDS: DOCUSATE SODIUM SUGAR FREE 100MG/10ML UDC NG SCH ×2 (08:33→17:00)
[2018-02-08] MEDS: FAMOTIDINE 20MG/2ML VIAL IV SCH (08:33)
[2018-02-08] MEDS: DEXTROSE 5% WATER 1,000 ML IV SCH (08:34)
[2018-02-08] MEDS: METOPROLOL TARTRATE 50MG TABLET PO SCH ×2 (08:34→21:03)
[2018-02-08] MEDS: LEVOFLOXACIN 500MG PREMIX 100 ML IV SCH (11:07)
[2018-02-08] MEDS: FLUCONAZOLE 400MG/200ML BAG 200 ML IV SCH (18:00)
[2018-02-08] MEDS: ATORVASTATIN CALCIUM 40MG TABLET PO SCH (21:03)
[2018-02-09] VITALS (12 sets, daily range): BP systolic 123–154; BP diastolic 67–94
[2018-02-09] MEDS: BLOOD SUGAR DIAGNOSTIC STRIP TEST SCH ×5 (00:04→23:50)
[2018-02-09] MEDS: CEFTAZIDIME PENTAHYDRATE 1 G in DEXTROSE 5% WATER 50 ML IV SCH (03:07)
[2018-02-09] MEDS: DEXTROSE 5% WATER 1,000 ML IV SCH (03:07)
[2018-02-09] MEDS: IPRATROPIUM/ALBUTEROL 0.5-3(2.5)MG/3ML NEB HHN SCH ×5 (04:11→20:26)
[2018-02-09] MEDS: METRONIDAZOLE 500MG TABLET PO SCH ×2 (05:14→13:52)
[2018-02-09] MEDS: INSULIN LISPRO 100 UNITS/ML SUBCUT SCH ×5 (05:35→23:50)
[2018-02-09 08:00] LABS: HEMATOCRIT 25.7 % (36.0-48.0); HEMOGLOBIN 8.7 g/dL (12.0-16.0); MEAN CORPUSCULAR HEMOGLOBIN 28.6 pg (28.0-32.0); MEAN CORPUSCULAR VOLUME 84.8 fL (81.0-99.0); PLATELET 390 x1000/uL (130-400); RED BLOOD CELL COUNT 3.03 mill/uL (4.2-5.4); RED CELL DISTRIBUTION WIDTH 18.1 % (11.6-14.6)
[2018-02-09 08:07] LABS: INR 1.2; PARTIAL THROMBOPLASTIN TIME 27.3 sec (23.4-31.0); PROTHROMBIN TIME 11.6 sec (9.1-11.1)
[2018-02-09 08:36] LABS: CHLORIDE 99 mEq/L (98-107)
[2018-02-09] MEDS: FAMOTIDINE 20MG/2ML VIAL IV SCH (08:40)
[2018-02-09] MEDS: DOCUSATE SODIUM SUGAR FREE 100MG/10ML UDC NG SCH ×2 (09:00→17:56)
[2018-02-09] MEDS: METOPROLOL TARTRATE 50MG TABLET PO SCH ×2 (09:00→20:59)
[2018-02-09] MEDS ORDERED: SIMETHICONE 40 MG/0.6 ML 30ML ONE (10:42)
[2018-02-09] MEDS ORDERED: BACTERIOSTATIC SODIUM CHLORIDE 0.9% 30ML VIAL IJ ONE (10:42)
[2018-02-09] MEDS ORDERED: FENTANYL CITRATE/PF 50MCG/ML 2ML VIAL ONE (11:38)
[2018-02-09] MEDS ORDERED: MIDAZOLAM HCL 5 MG/5 ML VIAL ONE (11:38)
[2018-02-09] MEDS ORDERED: FENTANYL CITRATE/PF 50MCG/ML 2ML VIAL IV NR (12:00)
[2018-02-09] MEDS ORDERED: MIDAZOLAM HCL 2 MG/2 ML VIAL IV NR (12:03)
[2018-02-09] MEDS: MORPHINE SULFATE 4 MG/ML CPJ (NOT FOR IM USE) IV PRN ×2 (16:09→20:54)
[2018-02-09] MEDS: MEROPENEM 1,000 MG in SODIUM CHLORIDE 0.9% 100 ML IV SCH ×2 (17:52→23:56)
[2018-02-10] VITALS (12 sets, daily range): BP systolic 110–145; BP diastolic 58–68
[2018-02-10] MEDS: IPRATROPIUM/ALBUTEROL 0.5-3(2.5)MG/3ML NEB HHN SCH ×6 (00:54→20:40)
[2018-02-10 01:49] LABS: CLARITY URINE CLEAR (CLEAR); COLOR URINE DARK YELLOW (YELLOW); KETONES URINE TRACE (NEGATIVE); LEUKOCYTE ESTERASE URINE TRACE (NEGATIVE); NITRITE URINE NEGATIVE (NEGATIVE); OCCULT BLOOD URINE 3+ (NEGATIVE); PROTEIN URINE 2+ (NEGATIVE); SPECIFIC GRAVITY URINE 1.023 (1.005-1.030)
[2018-02-10] MEDS: BLOOD SUGAR DIAGNOSTIC STRIP TEST SCH ×4 (05:35→23:39)
[2018-02-10] MEDS: INSULIN LISPRO 100 UNITS/ML SUBCUT SCH ×4 (05:36→23:39)
[2018-02-10 06:11] LABS: HEMATOCRIT 25.9 % (36.0-48.0); HEMOGLOBIN 8.8 g/dL (12.0-16.0); MEAN CORPUSCULAR VOLUME 85.2 fL (81.0-99.0); PLATELET 353 x1000/uL (130-400); RED BLOOD CELL COUNT 3.04 mill/uL (4.2-5.4); RED CELL DISTRIBUTION WIDTH 18.5 % (11.6-14.6)
[2018-02-10 07:19] LABS: CHLORIDE 99 mEq/L (98-107)
[2018-02-10] MEDS: MEROPENEM 1,000 MG in SODIUM CHLORIDE 0.9% 100 ML IV SCH ×3 (08:39→23:39)
[2018-02-10] MEDS: FAMOTIDINE 20MG/2ML VIAL IV SCH (08:39)
[2018-02-10] MEDS: METOPROLOL TARTRATE 50MG TABLET PO SCH ×2 (08:39→21:38)
[2018-02-10] MEDS: DOCUSATE SODIUM SUGAR FREE 100MG/10ML UDC NG SCH ×2 (08:40→17:16)
[2018-02-10] MEDS: ACETAMINOPHEN 650MG/20.3ML UDC PO PRN (16:23)
[2018-02-11] VITALS (10 sets, daily range): BP systolic 112–135; BP diastolic 56–72
[2018-02-11] MEDS: IPRATROPIUM/ALBUTEROL 0.5-3(2.5)MG/3ML NEB HHN SCH ×4 (01:01→12:38)
[2018-02-11] MEDS: ACETAMINOPHEN 650MG/20.3ML UDC PO PRN ×2 (01:07→15:32)
[2018-02-11] MEDS: INSULIN LISPRO 100 UNITS/ML SUBCUT SCH ×2 (06:00→12:00)
[2018-02-11] MEDS: BLOOD SUGAR DIAGNOSTIC STRIP TEST SCH ×2 (06:34→12:50)
[2018-02-11] MEDS: MEROPENEM 1,000 MG in SODIUM CHLORIDE 0.9% 100 ML IV SCH (08:23)
[2018-02-11] MEDS: DOCUSATE SODIUM SUGAR FREE 100MG/10ML UDC NG SCH (08:23)
[2018-02-11] MEDS: METOPROLOL TARTRATE 50MG TABLET PO SCH (08:24)
[2018-02-11] MEDS: FAMOTIDINE 20MG/2ML VIAL IV SCH (08:24)
[2018-02-11 15:50] LABS: HEMATOCRIT. 27.8 % (36.0-48.0); HEMOGLOBIN. 9.4 g/dL (12.0-16.0); MEAN CORPUSCULAR HEMOGLOBIN 28.8 pg (28.0-32.0); MEAN CORPUSCULAR VOLUME 85.3 fL (81.0-99.0); MEAN PLATELET VOLUME 8.3 fl (7.4-10.4); PLATELET 355 x1000/uL (130-400); RED BLOOD CELL COUNT 3.26 mill/uL (4.2-5.4); RED CELL DISTRIBUTION WIDTH 19.1 % (11.6-14.6)
[2018-02-11 16:21] LABS: PLATELET ESTIMATE NORMAL
[2018-02-11 17:33] LABS: CHLORIDE 101 mEq/L (98-107)
== END 2018-02-11 16:10 | DRG 4 ==
LOC: ER 10:02 → EDBEDREQ 17:04 → EDBEDREQTM 17:04 → ENRESERV 17:13 → 8WST 17:13 → MICUSO 01-12 01:52 → 3WST 01-19 19:48 → MICUNO 01-24 12:18 → MICUSO 02-02 20:00 → 5EST 02-08 13:53
PROVIDERS: ADMIT Internal Medicine; ATTEND Internal Medicine
PROC: 5A1955Z Respiratory Ventilation, Greater than 96 Consecutive Hours (ICD-10-PCS; principal; 2018-01-12)
PROC: 0BH17EZ Insertion of Endotracheal Airway into Trachea, Via Natural or Artificial Opening (ICD-10-PCS; 2018-01-12)
PROC: 30233N1 Transfusion of Nonautologous Red Blood Cells into Peripheral Vein, Percutaneous Approach (ICD-10-PCS; 2018-01-12)
PROC: 0DJ08ZZ Inspection of Upper Intestinal Tract, Via Natural or Artificial Opening Endoscopic (ICD-10-PCS; 2018-01-14)
PROC: 0BTG0ZZ Resection of Left Upper Lung Lobe, Open Approach (ICD-10-PCS; 2018-01-15)
PROC: 0BJ08ZZ Inspection of Tracheobronchial Tree, Via Natural or Artificial Opening Endoscopic (ICD-10-PCS; 2018-01-15)
PROC: 02HV33Z Insertion of Infusion Device into Superior Vena Cava, Percutaneous Approach (ICD-10-PCS; 2018-01-23)
PROC: B518ZZA Fluoroscopy of Superior Vena Cava, Guidance (ICD-10-PCS; 2018-01-23)
PROC: B548ZZA Ultrasonography of Superior Vena Cava, Guidance (ICD-10-PCS; 2018-01-23)
PROC: 0BH17EZ Insertion of Endotracheal Airway into Trachea, Via Natural or Artificial Opening (ICD-10-PCS; 2018-01-24)
PROC: 5A1955Z Respiratory Ventilation, Greater than 96 Consecutive Hours (ICD-10-PCS; 2018-01-24)
PROC: 5A09357 Assistance with Respiratory Ventilation, Less than 24 Consecutive Hours, Continuous Positive Airway Pressure (ICD-10-PCS; 2018-01-24)
PROC: 05HY33Z Insertion of Infusion Device into Upper Vein, Percutaneous Approach (ICD-10-PCS; 2018-02-04)
PROC: 0B110F4 Bypass Trachea to Cutaneous with Tracheostomy Device, Open Approach (ICD-10-PCS; 2018-02-05)
PROC: 05HY33Z Insertion of Infusion Device into Upper Vein, Percutaneous Approach (ICD-10-PCS; 2018-02-07)
PROC: 0DH63UZ Insertion of Feeding Device into Stomach, Percutaneous Approach (ICD-10-PCS; 2018-02-09)
DX: A41.9 Sepsis, unspecified organism (principal); J69.0 Pneumonitis due to inhalation of food and vomit; I26.99 Other pulmonary embolism without acute cor pulmonale; J85.0 Gangrene and necrosis of lung; J84.9 Interstitial pulmonary disease, unspecified; I50.33 Acute on chronic diastolic (congestive) heart failure; E46 Unspecified protein-calorie malnutrition; I82.622 Acute embolism and thrombosis of deep veins of left upper extremity; I82.A12 Acute embolism and thrombosis of left axillary vein; E11.65 Type 2 diabetes mellitus with hyperglycemia; J96.00 Acute respiratory failure, unspecified whether with hypoxia or hypercapnia; I11.0 Hypertensive heart disease with heart failure; I47.1 Supraventricular tachycardia; J47.9 Bronchiectasis, uncomplicated; K44.9 Diaphragmatic hernia without obstruction or gangrene; E87.6 Hypokalemia; M62.82 Rhabdomyolysis; R74.0 Nonspecific elevation of levels of transaminase and lactic acid dehydrogenase [LDH]; B37.49 Other urogenital candidiasis; R04.2 Hemoptysis; E78.5 Hyperlipidemia, unspecified; D50.0 Iron deficiency anemia secondary to blood loss (chronic); K29.70 Gastritis, unspecified, without bleeding; R91.1 Solitary pulmonary nodule; I27.20 Pulmonary hypertension, unspecified; J98.11 Atelectasis; T38.0X5A Adverse effect of glucocorticoids and synthetic analogues, initial encounter; Z86.11 Personal history of tuberculosis; Z99.11 Dependence on respirator [ventilator] status; Z68.22 Body mass index [BMI] 22.0-22.9, adult; Y92.89 Other specified places as the place of occurrence of the external cause
CPT/HCPCS: 31500; 36415; 36569; 36600; 71045; 71250; 71260; 71270; 74177; 76700; 76937; 77001; 78580; 80048; 80053; 80076; 80202; 81003; 82270; 82375; 82550; 82553; 82805; 82962; 83036; 83690; 84132; 84145; 84443; 84478; 84484; 85014; 85018; 85025; 85027; 85610; 85730; 86635; 86705; 86709; 86803; 86850; 86900; 86920; 87040; 87070; 87086; 87106; 87186; 87340; 87449; 87899; 88309; 88312; 92610; 93005; 93306; 93970; 94002; 94003; 94640; 94660; 94664; 96365; 96375; 97116; 97162; 97530; 99291; A4216; C1725; C1769; C9113; J0171; J0330; J0713; J1450; J1650; J1815; J1885; J1940; J1956; J2060; J2185; J2250; J2270; J2405; J2543; J2704; J2920; J3010; J3370; J3480; J3490; J7030; J7040; J7050; J7060; J7070; J7608; J7620; P9016; Q9967; A4315

== ENCOUNTER 2024-08-06 13:46 | Emergency (ER) | payer MEDICARE, MEDICAID ==
[~2024-08-06] VITALS: Ht 157.5 cm; Wt 54.5 kg
[~2024-08-06 13:46] MED LIST changes: +AMOX-424 MT; -LISI-604 PO; +LISI20TA31 PO; +PANT40TA51 PO
[2024-08-06] MEDS: MORPHINE SULFATE 4 MG/ML INJ (FOR IV/IM USE) IV STA (14:00)
[2024-08-06] MEDS: ASPIRIN 81MG TABLET PO ONE (14:00)
[2024-08-06] MEDS: ACETAMINOPHEN 325MG TABLET PO STA (14:00)
[2024-08-06] MEDS: ONDANSETRON HCL 4MG/2ML INJ IV STA (14:00)
[2024-08-06 14:12] VITALS: O2SAT 99
[2024-08-06] MEDS ORDERED: NITROGLYCERIN 0.4MG TABLET SL SL PRN (14:30)
[2024-08-06 15:43] LABS: BASOPHILS % 1.3 % (0.0-2.0); DIFFERENTIAL COMMENT 0; EOSINOPHILS % 1.6 % (0.0-5.0); HEMATOCRIT. 31.7 % (36.0-48.0); LYMPHOCYTES % 39.1 % (20.0-50.0); MEAN CORPUSCULAR HEMOGLOBIN 25.1 pg (28.0-32.0); MEAN CORPUSCULAR HGB CONC 31.7 g/dL (31.0-37.0); MEAN CORPUSCULAR VOLUME 79.2 fL (81.0-99.0); MEAN PLATELET VOLUME 8.6 fl (7.4-10.4); MONOCYTES % 8.3 % (2.0-8.0); NEUTROPHILS % 49.7 % (40.0-76.0); PLATELET 229 x1000/uL (130-400); WHITE BLOOD COUNT 4.3 x1000/uL (4.5-11.0)
[2024-08-06 15:49] LABS: CHLORIDE 106 mEq/L (98-107); SODIUM 141 mEq/L (136-145)
[2024-08-06 15:50] LABS: CARBON DIOXIDE 26 mEq/L (21-32)
[2024-08-06 15:55] LABS: CREATININE 0.6 mg/dL (0.6-1.0); GLUCOSE 132 mg/dL (70-105); UREA NITROGEN BLOOD 14 mg/dL (9-23)
[2024-08-06 15:58] LABS: TROPONIN I HIGH SENSITIVITY < 4 ng/L (3.0-34)
[2024-08-06] MEDS ORDERED: AMLO10TA80 PO (17:09)
[2024-08-06] MEDS ORDERED: OMEP40CA20 PO (17:09)
[2024-08-06] MEDS ORDERED: ATOR20TA65 MT (17:09)
[2024-08-06] MEDS ORDERED: CELE-116 PO (17:09)
[2024-08-06 17:55] LABS: TROPONIN I HIGH SENSITIVITY < 4 ng/L (3.0-34)
[2024-08-06] MEDS ORDERED: HYDRALAZINE 20MG/ML VIAL IV PRN (18:15)
[2024-08-06] MEDS ORDERED: IPRATROPIUM/ALBUTEROL 0.5-3(2.5)MG/3ML NEB HHN PRN (18:15)
[2024-08-06] MEDS ORDERED: MELATONIN 3MG TABLET PO PRN (18:15)
[2024-08-06] MEDS ORDERED: ACETAMINOPHEN 325MG TABLET PO PRN (18:15)
[2024-08-06] MEDS ORDERED: ONDANSETRON HCL 4MG/2ML INJ IV PRN (18:30)
[2024-08-06] MEDS ORDERED: GUAIFENESIN 200MG/10ML SUGAR FREE UDC PO PRN (18:30)
[2024-08-06] MEDS ORDERED: DOCUSATE SODIUM 100MG CAPSULE PO PRN (18:30)
[2024-08-06] MEDS ORDERED: MAGNESIUM/ALUMINUM HYDROXIDE/SIMETHICONE 30ML UDC PO PRN (18:30)
[2024-08-06 20:00] VITALS: BP 142/76; PULSE 65; RESP 17; TEMP 36.7; O2SAT 97
[2024-08-06] MEDS ORDERED: ATORVASTATIN CALCIUM 20MG TABLET PO SCH (21:00)
[2024-08-06 22:07] LABS: CLARITY URINE CLEAR (CLEAR); COLOR URINE YELLOW (YELLOW); GLUCOSE URINE NEGATIVE (NEGATIVE); KETONES URINE NEGATIVE (NEGATIVE); LEUKOCYTE ESTERASE URINE NEGATIVE (NEGATIVE); NITRITE URINE NEGATIVE (NEGATIVE); OCCULT BLOOD URINE NEGATIVE (NEGATIVE); PROTEIN URINE NEGATIVE (NEGATIVE); SPECIFIC GRAVITY URINE 1.015 (1.005-1.030); UROBILINOGEN URINE 0.2 E.U./dL (0.2-1.0)
[2024-08-07] MEDS ORDERED: PANTOPRAZOLE 40MG DR TABLET PO SCH (07:50)
[2024-08-07] MEDS ORDERED: AMLODIPINE 10MG TABLET PO SCH (09:00)
== END 2024-08-06 20:17 | disposition home or self-care (01) ==
LOC: ER 13:46
DX: R07.89 Other chest pain (principal); E78.00 Pure hypercholesterolemia, unspecified; I10 Essential (primary) hypertension; Z90.2 Acquired absence of lung [part of]; Z87.19 Personal history of other diseases of the digestive system; Z79.899 Other long term (current) drug therapy; Z79.1 Long term (current) use of non-steroidal anti-inflammatories (NSAID); Z98.890 Other specified postprocedural states
CPT/HCPCS: 99285; 96374; 71045; 96375; 80048; 81003; 83880; 85025; 85379; 84484; 93005; 36415; J2405; J2270